=== PATIENT | female | born 1985 | race Caucasian/White ===

== ENCOUNTER → 2019-05-18 09:44 | Outpatient (BNVA) | payer MEDICAID, SELFPAY | PROVIDERS: Family Provider Nurse Practitioner; PCP Family Medicine; Visit Provider Counselor Professional | DX: F33.1 Major depressive disorder, recurrent, moderate (principal) | CPT/HCPCS: 90834; H0004 ==

== ENCOUNTER → 2019-05-25 09:50 | Outpatient (BNVA) | payer MEDICAID, SELFPAY | PROVIDERS: Family Provider Nurse Practitioner; PCP Family Medicine; Visit Provider Nurse Practitioner | DX: F33.1 Major depressive disorder, recurrent, moderate (principal) | CPT/HCPCS: 90832; 99213 ==

== ENCOUNTER → 2019-06-15 09:35 | Outpatient (BNVA) | payer MEDICAID, SELFPAY | PROVIDERS: Family Provider Nurse Practitioner; PCP Family Medicine; Visit Provider Counselor Professional | DX: F33.1 Major depressive disorder, recurrent, moderate (principal) | CPT/HCPCS: 90834 ==

== ENCOUNTER → 2019-06-23 10:17 | Outpatient (BNVA) | payer OTHER, SELFPAY | PROVIDERS: Family Provider Nurse Practitioner; PCP Family Medicine; Visit Provider Nurse Practitioner | DX: F32.9 Major depressive disorder, single episode, unspecified (principal) | CPT/HCPCS: 80061; 83036 ==

== ENCOUNTER → 2019-07-13 10:43 | Outpatient (BNVA) | payer MEDICAID, SELFPAY | PROVIDERS: Family Provider Nurse Practitioner; PCP Family Medicine; Visit Provider Counselor Professional | DX: F32.9 Major depressive disorder, single episode, unspecified (principal); F43.12 Post-traumatic stress disorder, chronic | CPT/HCPCS: 90834 ==

== ENCOUNTER → 2019-08-09 09:22 | Outpatient (BNVA) | payer MEDICAID, SELFPAY | PROVIDERS: Family Provider Nurse Practitioner; PCP Family Medicine; Visit Provider Counselor Professional | DX: F41.8 Other specified anxiety disorders (principal) | CPT/HCPCS: 90834 ==

== ENCOUNTER → 2019-08-16 07:54 | Outpatient (BNVA) | payer MEDICAID, SELFPAY | PROVIDERS: Family Provider Nurse Practitioner; PCP Family Medicine; Visit Provider Nurse Practitioner | DX: F43.10 Post-traumatic stress disorder, unspecified (principal); F33.1 Major depressive disorder, recurrent, moderate | CPT/HCPCS: 90832; 99214 ==

== ENCOUNTER → 2019-08-19 10:37 | Outpatient (BNVA) | payer MEDICAID, SELFPAY | PROVIDERS: Family Provider Nurse Practitioner; PCP Family Medicine; Visit Provider Obstetrics & Gynecology | DX: Z32.01 Encounter for pregnancy test, result positive (principal) | CPT/HCPCS: 81025 ==

== ENCOUNTER 2019-08-23 16:15 | Emergency (ER) | payer MEDICAID, SELFPAY ==
[2019-08-20 08:32] VITALS: BP 100/59; BMI 19.3
[2019-08-23 16:17] VITALS: BP 117/73; PULSE 75; RESP 18; TEMP 36.7; O2SAT 100; BMI 18.6
--- NOTE | 2019-08-23 17:18 | USR_ITS ---
NOTE: Report was unsigned for reason: Order was edited. Original Signature date and time was: 08/23/192015 PROCEDURE INFORMATION: Exam: US First Trimester, Transabdominal and US , Transvaginal Exam date and time: 08/23/2019 6:45 PM Age: 33 years old Clinical indication: Pain; Other: Left pelvic; Gestational age or lmp: See above; ; Additional info: L pelvic pain; TECHNIQUE: Imaging protocol: Real-time transabdominal obstetrical ultrasound of the maternal pelvis and a first trimester , less than 14 weeks 0 days, with image documentation. Transvaginal imaging was used for better evaluation of the fetus and adnexa. COMPARISON: US [facility] OB < 14 weeks 09/24/2013 9:39 AM FINDINGS: The uterus measures 9.3 x 4.8 x 5.2 cm. There is a single intrauterine gestational sac with a normal appearing yolk sac. The mean sac diameter is 1.4 cm, corresponding to an estimated gestational age of 6 weeks, 3 days. The estimated gestational age based on the last menstrual period (June 19, 2019) is 9 weeks, 2 days. No pole is identified at this time. There is a 2.1 x 0.9 x 0.7 cm hypoechoic area adjacent to the gestational sac, consistent with a small to moderate subchorionic hematoma. Both maternal ovaries are identified and demonstrate blood flow on Doppler interrogation. The right ovary measures 3.1 x 2.2 x 2.6 cm and the left ovary measures 3.4 x 1.8 x 2 cm. There is a small complex cystic lesion in the right ovary, suggestive of a corpus luteum. There is no adnexal mass. No free fluid is seen in the pelvis. MTDD US/US OB <= 14 weeks fetus [id number] IMPRESSION: 1. Single intrauterine gestational sac with a normal appearing yolk sac. No pole identified at this time. Serial quantitative beta-hCG levels and close interval ultrasound followup is recommended to ensure a normal intrauterine gestation and exclude anembryonic . 2. Small to moderate subchorionic hematoma.
--- NOTE | 2019-08-23 17:20 | W.ED.PREGNAN ---
HPI - General: Chief complaint: Abdominal Pain Stated complaint: lower left abd pain, preg Time Seen by Provider: 08/23/19 17:08 Source: patient Mode of arrival: ambulatory Limitations: no limitations History of Present Illness: HPI Narrative: Patient is a 33-year-old [id number] female here at an unknown gestation date for complaints of left pelvic pain. She states her has been confirmed via urine test at the [facility] however she is not sure how far along she may be. Patient states since around Friday she began having intermittent left lower pelvic pain that has slowly progressed. She contacted the [facility] today and was told to come to the emergency department for ectopic rule out. Patient states she is not having any vaginal bleeding. She does complain of some vaginal odor without any changes in discharge. MD Complaint: other (pelvic pain ) Onset (ago): day(s) Pain Consistency: intermittent Location: pelvis Severity: mild Quality: Cramping and Sharp Relieving factors: none Exacerbating factors: none Vaginal bleeding: none Date of Last Menstrual Period: 06/19/19 Patient : Yes Associated symptoms: Deny abdominal pain, dysuria, headache(s), malaise, nausea, syncope, vaginal bleeding, vaginal discharge or vomiting Review of Systems General: Reports: 10 or more systems reviewed and unremarkable except in HPI and below Const: Denies: fever, chills, body aches, change in appetite, change in weight, fatigue or malaise Card: Denies: chest pain, palpitations, irregular heart rhythm, edema, swelling of feet/ankles, lightheadedness, syncope, pre-syncope, shortness of breath on exertion or shortness of breath when lying down Resp: Denies: shortness of breath, productive cough, non-productive cough, coughing up blood or chest congestion GI: Denies: abdominal pain, nausea, vomiting or diarrhea : Reports: vaginal odor and pelvic pain; Denies: flank pain, difficulty urinating, painful urination, urinary frequency, urinary urgency, urinary hesitancy, blood in urine, genital lesion, genital itching, vaginal bleeding or vaginal discharge Musc: Denies: neck pain or back pain (chronic) Skin/Breast: Denies: rash Neuro: Denies: headache, numbness in extremities, weakness in extremities or changes in sensation PFS ED PFSH: Social History Smoking and tobacco status: current every day smoker cigarettes Quit status (tobacco): considering quitting Smoking risk assessment/counseling performed?: Yes Tobacco counseling given: counseling >3 minutes Current gender identity: Female Female Reproductive History: Date of last menstrual period: 06/19/19 Physical Exam Const: COMMON NORMALS: no apparent distress, average body habitus, oriented x3, no limitations, healthy appearing, alert and well nourished Resp: COMMON NORMALS: normal respiratory effort and clear to auscultation bilaterally AUSCULTATION: clear to auscultation bilaterally Cardio: COMMON NORMALS: regular rate and regular rhythm RATE: regular rate RHYTHM: regular rhythm GI: COMMON NORMALS: normal to inspection, nondistended, normoactive bowel sounds, soft to palpation, no hepatosplenomegaly and no masses PALPATION: Yes soft, Yes tender (L lower pelvis; no abdominal tenderness ) and Yes no hepatosplenomegaly : COMMON NORMALS: Yes no CVA tenderness BLADDER/KIDNEY EXAM: Yes no CVA tenderness SPECULUM EXAM - VAGINA: No vaginal bleeding and Yes vaginal discharge Vaginal discharge present: white SPECULUM EXAM - CERVIX: Yes cervical os closed, No tissue present in the cervical os, No cervical bleeding and Yes cervical lesion (two small lesions present at 7 oclock on cervix; reports +HPV) OB/EXTERNAL & SPECULUM: No vaginal bleeding Back/Pelvis: COMMON NORMALS: no CVA tenderness Extremity: COMMON NORMALS: normal to inspection Neuro: COMMON NORMALS: oriented x3 SENSORIUM/ORIENTATION: Yes alert Skin: COMMON NORMALS: no rashes or lesions noted GENERAL SKIN EXAM: no rashes or lesions noted Course Vital Signs: Vital signs: Vital Signs Temperature 98.1 F 08/23/19 16:17 Pulse Rate 91 08/23/19 18:41 Respiratory Rate 16 08/23/19 18:41 Blood Pressure 98/55 08/23/19 18:41 Pulse Oximetry 98 08/23/19 18:41 MDM - OB/Uterine Contractions MDM Narrative: Medical decision making narrative: Pt currently has appointment [facility] 14. Recommend she return to ED for any worsening pain, cramping, bleeding, or other concerns. Will go ahead and treat Lab Data: Labs: Lab Results 08/23/19 08/23/19 Range/Units 17:31 17:31 WBC 7.8 (4.0-10.0) 10^3/ uL RBC 4.39 (4.1-5.3) 10^6/u L Hgb 14.3 (11.5-15.3) g/dL Hct 42.8 (37.0-47.0) % MCV 97.5 (81-99) fL MCH 32.6 (28.0-34.0) pg MCHC 33.4 (30.0-36.0) g/dL RDW 12.6 (12.1-15.1) % Plt Count 235 (130-400) 10^3/c mm MPV 9.9 (7.4-10.4) fL Neut % (Auto) 64.9 % Lymph % (Auto) 24.4 % Barnes % (Auto) 7.6 % Eos % (Auto) 2.7 % Baso % (Auto) 0.3 % Neut # (Auto) 5.0 (1.8-7.7) 10^3/u L Lymph # (Auto) 1.9 (0.8-4.8) 10^3/u L Barnes # (Auto) 0.6 (0.2-0.9) 10^3/u L Eos # (Auto) 0.2 (0.0-0.8) 10^3/u L Baso # (Auto) 0.0 (0.0-0.1) 10^3/u L Nucleated RBC % (a uto) 0 % Nucleated RBCs # 0.0 /100WBC Sodium 137 (136-145) mmol/L Potassium 4.0 (3.5-5.1) mmol/L Chloride 101 (98-107) mmol/L Carbon Dioxide 24 (22-29) mmol/L Anion Gap 16.0 (5-19) BUN 12 (6-20) mg/dL Creatinine 0.7 (0.5-0.9) mg/dL GFR Calculation 97.0 (90-130) mL/min Glucose 88 (65-115) mg/dL Calculated Osmolal ity 280 L (285-295) mOsm/k g Calcium 9.4 (8.5-10.5) mg/dL Total Bilirubin 0.2 (0.15-1.2) mg/dL AST 15 (0-32) U/L ALT 12 (0-33) U/L Alkaline Phosphata se 78 (35-105) IU/L Total Protein 6.7 (6.6-8.7) g/dL Albumin 4.4 (3.5-5.2) g/dL Globulin 2.3 (1.3-4.6) g/dL Ser , [place] 34645.00 mIU/mL Imaging Data^: US OB: Radiologist's impression: [address] [address] Ultrasound Report Signed Patient: Shannon Acosta Unit #: [id number] : 1985 Age/Sex: 33 / F ADM Date: 08/23/19 Loc: ER Room/Bed: Attending Dr: Ordering Provider/Ordering MD: Ramona Bradley Date of Service: 08/23/19 Procedure(s): US OB <= 14 weeks fetus [id number] Accession Number(s): [id number] Report Number: [id number] PROCEDURE INFORMATION: Exam: US First Trimester, Transabdominal and US , Transvaginal Exam date and time: 08/23/2019 6:45 PM Age: 33 years old Clinical indication: Pain; Other: Left pelvic; Gestational age or lmp: See above; ; Additional info: L pelvic pain; TECHNIQUE: Imaging protocol: Real-time transabdominal obstetrical ultrasound of the maternal pelvis and a first trimester , less than 14 weeks 0 days, with image documentation. Transvaginal imaging was used for better evaluation of the fetus and adnexa. COMPARISON: [place] [facility] [place] 14 weeks 09/24/2013 9:39 AM FINDINGS: The uterus measures 9.3 x 4.8 x 5.2 cm. There is a single intrauterine gestational sac with a normal appearing yolk sac. The mean sac diameter is 1.4 cm, corresponding to an estimated gestational age of 6 weeks, 3 days. The estimated gestational age based on the last menstrual period (June 19, 2019) is 9 weeks, 2 days. No pole is identified at this time. There is a 2.1 x 0.9 x 0.7 cm hypoechoic area adjacent to the gestational sac, consistent with a small to moderate subchorionic hematoma. Both maternal ovaries are identified and demonstrate blood flow on Doppler interrogation. The right ovary measures 3.1 x 2.2 x 2.6 cm and the left ovary measures 3.4 x 1.8 x 2 cm. There is a small complex cystic lesion in the right ovary, suggestive of a corpus luteum. There is no adnexal mass. No free fluid is seen in the pelvis. US/US OB <= 14 weeks fetus [id number] IMPRESSION: 1. Single intrauterine gestational sac with a normal appearing yolk sac. No pole identified at this time. Serial quantitative beta-hCG levels and close interval ultrasound followup is recommended to ensure a normal intrauterine gestation and exclude anembryonic . 2. Small to moderate subchorionic hematoma. Dictated By: Jasen Ly MD Signed By: Jasen Ly MD Signed Date/Time: 08/23/192015 DD/ 14 Discharge Plan Discharge Patient Disposition: Home, Self-Care Clinical Impression: Bacterial vaginosis in Subchorionic hemorrhage in first trimester Qualifiers: Fetus number: single or unspecified fetus Qualified Code(s): O41.8X10 - Other specified disorders of amniotic fluid and membranes, first trimester, not applicable or unspecified Condition: Stable Prescriptions: No Action bupropion HCl [Wellbutrin XL] 150 mg tablet extended release 24 hr 150 mg PO QAM Qty: 30 RF: 1 buspirone 7.5 mg tablet 7.5 mg PO BID Qty: 60 RF: 1 cyclobenzaprine 10 mg tablet 10 mg PO TID PRN (Reason: muscle spasm) Qty: 30 RF: 0 albuterol sulfate [ProAir HFA] 90 mcg/actuation HFA aerosol inhaler 2 puff INHALATION Q6H PRN (Reason: shortness of breath) Qty: 8.5 RF: 0 melatonin 5 mg capsule 5 mg PO BEDTIME RF: 0 cholecalciferol (vitamin D3) 5,000 unit capsule 5,000 unit PO QDAY RF: 0 vitamin B complex [B Complex-Vitamin B12] Tablet 1 tab PO DAILY RF: 0 fluticasone propionate 50 mcg/actuation spray,suspension 1 spray INTRANASAL DAILY RF: 0 omeprazole 40 mg capsule,delayed release(DR/EC) 40 mg PO DAILY Qty: 30 RF: 2 rizatriptan [Maxalt-CONFIDENTIAL INVESTIGATOR] 10 mg tablet,disintegrating See Rx Instructions PO .COMPLEX Qty: 20 RF: 0 atenolol 25 mg tablet 25 mg PO BEDTIME RF: 0 Depakote ER 500 mg tablet extended release 24 hr 1,000 mg PO DAILY RF: 0 Zyrtec 10 mg capsule 10 mg PO DAILY PRN (Reason: allergy symptoms) RF: 0 Discharge Orders: Discharge Order (Routine); Ordered 08/23/19 Ordered By: Ramona Bradley Referrals: Betty Gracia FNP [Family Provider] - Uma León MD [Primary Care Provider] - Activity Restrictions/Additional Instructions: [facility]. He may return to the emergency department for severe bleeding, cramping/pain, or any other concerns you may have. Coding Level of Care Code ED Stone Finisher for Robin Fwd Exam Detailed
[2019-08-23 17:48] VITALS: BP 93/49; PULSE 106; RESP 18; O2SAT 98
[2019-08-23 17:49] LABS: Basophils % 0.3 %; Eosinophils # 0.2 10^3/uL (0.0-0.8); Eosinophils % 2.7 %; Hematocrit 42.8 % (37.0-47.0); Hemoglobin 14.3 g/dL (11.5-15.3); Lymphocytes # 1.9 10^3/uL (0.8-4.8); Lymphocytes % 24.4 %; Mean Corpuscular HGB Conc 33.4 g/dL (30.0-36.0); Mean Corpuscular Hemoglobin 32.6 pg (28.0-34.0); Mean Corpuscular Volume 97.5 fL (81-99); Mean Platelet Volume 9.9 fL (7.4-10.4); Monocytes # 0.6 10^3/uL (0.2-0.9); Monocytes % 7.6 %; Neutrophils % 64.9 %; Nucleated Red Blood Cells % 0 %; Platelet Count 235 10^3/cmm (130-400); Red Blood Count 4.39 10^6/uL (4.1-5.3); Red Cell Distribution Width 12.6 % (12.1-15.1); White Blood Count 7.8 10^3/uL (4.0-10.0)
[2019-08-23 18:15] LABS: Alanine Aminotransferase 12 U/L (0-33); Albumin Level 4.4 g/dL (3.5-5.2); Alkaline Phosphatase 78 IU/L (35-105); Aspartate Amino Transferase 15 U/L (0-32); Blood Urea Nitrogen 12 mg/dL (6-20); Calcium 9.4 mg/dL (8.5-10.5); Carbon Dioxide 24 mmol/L (22-29); Chloride 101 mmol/L (98-107); Globulin 2.3 g/dL (1.3-4.6); Glucose 88 mg/dL (65-115); Osmolality Calculated 280 mOsm/kg (285-295); Sodium 137 mmol/L (136-145); Total Bilirubin 0.2 mg/dL (0.15-1.2); Total Protein 6.7 g/dL (6.6-8.7)
[2019-08-23 18:24] VITALS: BP 112/59; PULSE 97; RESP 20; O2SAT 94
[2019-08-23 18:41] VITALS: BP 98/55; PULSE 91; RESP 16; O2SAT 98
[2019-08-23 20:35] VITALS: BP 94/59; PULSE 74; RESP 18; O2SAT 99
== END 2019-08-23 20:39 | disposition home or self-care (01) ==
PROVIDERS: Emergency Medicine; Emergency Provider Physician Assistant; Family Provider Nurse Practitioner; PCP Family Medicine
DX: O20.8 Other hemorrhage in early pregnancy (principal); Z3A.01 Less than 8 weeks gestation of pregnancy; O23.591 Infection of other part of genital tract in pregnancy, first trimester; O99.331 Smoking (tobacco) complicating pregnancy, first trimester; F17.210 Nicotine dependence, cigarettes, uncomplicated
CPT/HCPCS: 12345; 76801; 76817; 80053; 84702; 85025; 87210; 87491; 87591; 99282; 99283; A9270

== ENCOUNTER → 2019-09-03 07:57 | Outpatient (BNVA) | payer MEDICAID, SELFPAY | PROVIDERS: Family Provider Nurse Practitioner; PCP Family Medicine; Visit Provider Counselor Professional | DX: Z34.90 Encounter for supervision of normal pregnancy, unspecified, unspecified trimester (principal); F41.8 Other specified anxiety disorders; F32.0 Major depressive disorder, single episode, mild; F43.10 Post-traumatic stress disorder, unspecified | CPT/HCPCS: 90834 ==

== ENCOUNTER → 2019-09-28 11:29 | Outpatient (BNVA) | payer MEDICAID, SELFPAY ==
[2019-09-15 14:05] VITALS: BP 100/59; BMI 19.3
== END ==
PROVIDERS: Family Provider Nurse Practitioner; PCP Family Medicine; Visit Provider Obstetrics & Gynecology
DX: Z34.90 Encounter for supervision of normal pregnancy, unspecified, unspecified trimester (principal)
CPT/HCPCS: 80053; 80307; 84315; 86592; 86762; 86787; 86803; 86850; 86900; 87340; 87806

== ENCOUNTER → 2019-10-11 09:39 | Outpatient (BNVA) | payer MEDICAID, SELFPAY ==
[2019-10-08 15:20] VITALS: BP 100/59; BMI 19.3
== END ==
PROVIDERS: Family Provider Nurse Practitioner; PCP Family Medicine; Visit Provider Obstetrics & Gynecology
DX: Z12.4 Encounter for screening for malignant neoplasm of cervix (principal); O09.90 Supervision of high risk pregnancy, unspecified, unspecified trimester; O99.330 Smoking (tobacco) complicating pregnancy, unspecified trimester; J44.9 Chronic obstructive pulmonary disease, unspecified; G43.711 Chronic migraine without aura, intractable, with status migrainosus; F32.9 Major depressive disorder, single episode, unspecified; K21.9 Gastro-esophageal reflux disease without esophagitis
CPT/HCPCS: 84315; 88175

== ENCOUNTER → 2019-10-22 07:57 | Outpatient (BNVA) | payer MEDICAID, SELFPAY ==
[2019-10-20 08:35] VITALS: BP 100/59; BMI 19.3
== END ==
PROVIDERS: Family Provider Nurse Practitioner; PCP Family Medicine; Visit Provider Counselor Professional
DX: O99.330 Smoking (tobacco) complicating pregnancy, unspecified trimester (principal); F33.1 Major depressive disorder, recurrent, moderate
CPT/HCPCS: 90834

== ENCOUNTER → 2019-11-19 08:40 | Outpatient (BNVA) | payer MEDICAID, SELFPAY ==
[2019-11-02 15:17] VITALS: BP 100/59; BMI 19.3
== END ==
PROVIDERS: Family Provider Nurse Practitioner; PCP Family Medicine; Visit Provider Counselor Professional
DX: F33.2 Major depressive disorder, recurrent severe without psychotic features (principal)
CPT/HCPCS: 90834

== ENCOUNTER 2019-12-03 07:24 | Outpatient (CLI) | payer MEDICAID, SELFPAY ==
[2019-11-24 16:53] VITALS: BP 100/59; BMI 19.3
[2019-12-03] VITALS (7 sets, daily range): BP systolic 90–96; BP diastolic 46–54; PULSE 69–88; RESP 16; TEMP 37.1–37.2; BMI 19.5
[2019-12-03 08:10] LABS: Add Urine Microscopic? NO
[2019-12-03 08:19] LABS: Bilirubin Urine Neg (NEGATIVE); Blood Urine Neg (Negative); Glucose Urine UA Norm (Normal); Ketones Urine Negative (Negative); Leukocyte Esterase Urine Negative (Negative); Nitrate Urine Negative (Negative); Protein Urine Neg (Negative); Urine Appearance Clear (CLEAR); Urine Color Straw (Yellow); Urobilinogen Urine Norm (Negative)
[2019-12-03 08:49] LABS: Basophils % 0.2 %; Eosinophils # 0.1 10^3/uL (0.0-0.8); Eosinophils % 1.3 %; Hematocrit 35.1 % (37.0-47.0); Hemoglobin 11.8 g/dL (11.5-15.3); Lymphocytes # 1.4 10^3/uL (0.8-4.8); Lymphocytes % 14.8 %; Mean Corpuscular HGB Conc 33.6 g/dL (30.0-36.0); Mean Corpuscular Hemoglobin 32.1 pg (28.0-34.0); Mean Corpuscular Volume 95.4 fL (81-99); Mean Platelet Volume 10.2 fL (7.4-10.4); Monocytes # 0.7 10^3/uL (0.2-0.9); Monocytes % 7.5 %; Neutrophils # 6.99 10^3/uL (1.8-7.7); Neutrophils % 75.8 %; Nucleated Red Blood Cells % 0 %; Platelet Count 185 10^3/cmm (130-400); Red Blood Count 3.68 10^6/uL (4.1-5.3); Red Cell Distribution Width 13.4 % (12.1-15.1); White Blood Count 9.2 10^3/uL (4.0-10.0)
[2019-12-03] MEDS: acetaminophen 500 mg Tablet 1000 MG PO (09:03)
[2019-12-03 09:12] LABS: Urine Appearance Clear (CLEAR); Urine Color Yellow (Yellow); pH Urine 7 (5-7)
[2019-12-03 09:13] LABS: Add Urine Culture? No; Bacteria Urine TRACE; Bilirubin Urine Neg (NEGATIVE); Blood Urine Neg (Negative); Glucose Urine UA Norm (Normal); Ketones Urine Negative (Negative); Leukocyte Esterase Urine Negative (Negative); Nitrate Urine Negative (Negative); Protein Urine Neg (Negative); Squamous Epithelial Cell Urine RARE (0-5); Urobilinogen Urine Norm (Negative)
[2019-12-03 09:19] LABS: Alanine Aminotransferase < 5 U/L (0-33); Albumin Level 3.2 g/dL (3.5-5.2); Alkaline Phosphatase 62 IU/L (35-105); Anion Gap 11.7 (5-19); Aspartate Amino Transferase 10 U/L (0-32); Blood Urea Nitrogen 5 mg/dL (6-20); Calcium 7.9 mg/dL (8.5-10.5); Carbon Dioxide 22 mmol/L (22-29); Chloride 107 mmol/L (98-107); Globulin 2.4 g/dL (1.3-4.6); Glucose 84 mg/dL (65-115); Osmolality Calculated 279 mOsm/kg (285-295); Potassium 3.7 mmol/L (3.5-5.1); Sodium 137 mmol/L (136-145); Total Bilirubin 0.2 mg/dL (0.15-1.2); Total Protein 5.6 g/dL (6.6-8.7)
== END 2019-12-03 09:44 | disposition home or self-care (01) ==
LOC: OPOB 07:29 → OBGYN 09:35
PROVIDERS: Family Provider Nurse Practitioner; PCP Family Medicine; Visit Provider Obstetrics & Gynecology
DX: O26.899 Other specified pregnancy related conditions, unspecified trimester (principal); Z3A.00 Weeks of gestation of pregnancy not specified; R10.9 Unspecified abdominal pain; M54.5 Low back pain
CPT/HCPCS: 36415; 80053; 81001; 81003; 85025; 99211

== ENCOUNTER → 2020-01-05 10:29 | Outpatient (BNVA) | payer MEDICAID, SELFPAY ==
[2019-11-24 16:53] VITALS: BP 100/59; BMI 19.3
== END ==
PROVIDERS: Family Provider Nurse Practitioner; PCP Family Medicine; Visit Provider Counselor Professional
DX: O99.330 Smoking (tobacco) complicating pregnancy, unspecified trimester (principal); F33.1 Major depressive disorder, recurrent, moderate
CPT/HCPCS: 90834; 84315

== ENCOUNTER → 2020-01-18 16:39 | Outpatient (BNVA) | payer MEDICAID, SELFPAY ==
[2019-11-24 16:53] VITALS: BP 100/59; BMI 19.3
== END ==
PROVIDERS: Family Provider Nurse Practitioner; PCP Family Medicine; Visit Provider Nurse Practitioner Family
DX: R05 Cough (principal); Z11.59 Encounter for screening for other viral diseases; Z20.828 Contact with and (suspected) exposure to other viral communicable diseases
CPT/HCPCS: 87635

== ENCOUNTER → 2020-01-24 10:15 | Outpatient (BNVA) | payer MEDICAID, SELFPAY ==
[2020-01-19 13:52] VITALS: BP 100/59; BMI 19.3
== END ==
PROVIDERS: Family Provider Nurse Practitioner; PCP Family Medicine; Visit Provider Specialist
DX: G43.711 Chronic migraine without aura, intractable, with status migrainosus (principal); F17.210 Nicotine dependence, cigarettes, uncomplicated
CPT/HCPCS: 99214

== ENCOUNTER → 2020-01-31 08:11 | Outpatient (BNVA) | payer MEDICAID, SELFPAY ==
[2020-01-19 13:52] VITALS: BP 100/59; BMI 19.3
== END ==
PROVIDERS: Family Provider Nurse Practitioner; PCP Family Medicine; Visit Provider Obstetrics & Gynecology
DX: O09.90 Supervision of high risk pregnancy, unspecified, unspecified trimester (principal); O44.00 Complete placenta previa NOS or without hemorrhage, unspecified trimester; O99.332 Smoking (tobacco) complicating pregnancy, second trimester; G43.711 Chronic migraine without aura, intractable, with status migrainosus; J44.9 Chronic obstructive pulmonary disease, unspecified; K21.9 Gastro-esophageal reflux disease without esophagitis; F32.9 Major depressive disorder, single episode, unspecified
CPT/HCPCS: 82950; 84315; 85025

== ENCOUNTER → 2020-02-03 08:37 | Outpatient (BNVA) | payer MEDICAID, SELFPAY ==
[2020-02-01 11:37] VITALS: BP 100/59; BMI 19.3
== END ==
PROVIDERS: Family Provider Nurse Practitioner; PCP Family Medicine; Visit Provider Counselor Professional
DX: F33.1 Major depressive disorder, recurrent, moderate (principal)
CPT/HCPCS: 90834

== ENCOUNTER → 2020-02-16 10:33 | Outpatient (BNVA) | payer MEDICAID, SELFPAY ==
[2020-02-01 11:37] VITALS: BP 100/59; BMI 19.3
== END ==
PROVIDERS: Family Provider Nurse Practitioner; PCP Family Medicine; Visit Provider Obstetrics & Gynecology
DX: O42.90 Premature rupture of membranes, unspecified as to length of time between rupture and onset of labor, unspecified weeks of gestation; O44.00 Complete placenta previa NOS or without hemorrhage, unspecified trimester; Z30.2 Encounter for sterilization; O99.332 Smoking (tobacco) complicating pregnancy, second trimester; J44.9 Chronic obstructive pulmonary disease, unspecified; G43.711 Chronic migraine without aura, intractable, with status migrainosus; F32.9 Major depressive disorder, single episode, unspecified; K21.9 Gastro-esophageal reflux disease without esophagitis; O09.90 Supervision of high risk pregnancy, unspecified, unspecified trimester
CPT/HCPCS: 83986; 84315

== ENCOUNTER → 2020-03-02 08:27 | Outpatient (BNVA) | payer MEDICAID, SELFPAY ==
[2020-02-01 11:37] VITALS: BP 100/59; BMI 19.3
== END ==
PROVIDERS: Family Provider Nurse Practitioner; PCP Family Medicine; Visit Provider Counselor Professional
DX: F32.9 Major depressive disorder, single episode, unspecified (principal)
CPT/HCPCS: 90834

== ENCOUNTER 2020-03-23 12:25 | Emergency (ER) | payer MEDICAID, SELFPAY ==
[2020-02-01 11:37] VITALS: BP 100/59; BMI 19.3
[2020-03-23 12:27] VITALS: BP 100/62; PULSE 102; RESP 16; TEMP 37; O2SAT 96; BMI 21.6
--- NOTE | 2020-03-23 12:43 | XR_ITS ---
WS: [id number] PORTABLE CHEST HISTORY: cough COMPARISON: 04/30/2018 Lungs are clear and well expanded. No pleural effusion or pneumothorax. Cardiac size: Normal. Mediastinum/Aorta: Normal mediastinum. No osseous abnormality seen. XR/XR chest 1V portable [id number] IMPRESSION: Unremarkable portable chest.
--- NOTE | 2020-03-23 12:54 | W.ED.GENADLT ---
HPI - General Adult General: Chief complaint: General Medical Stated complaint: NOT FEELING WELL/ POSSIBLE COVID Time Seen by Provider: 03/23/20 12:40 Source: patient and EMS Mode of arrival: EMS Limitations: no limitations History of Present Illness: HPI narrative: 34-year-old female who is 36 weeks states she has been having generalized body aches, sore throat nonproductive cough over the last 2 to 3 days. States feels like she has the flu or flulike illness. Denies any abdominal pain or vaginal bleeding. Patient denies any shortness of breath or fevers. Associated symptoms: Deny chest pain, headache(s), nausea, rash or vomiting Review of Systems Const: Reports: chills and body aches Eyes: Denies: blurry vision or eye discomfort ENMT: Reports: throat pain Card: Denies: chest pain Resp: Reports: non-productive cough GI: Denies: abdominal pain, nausea, vomiting or diarrhea : Denies: dysuria Musc: Denies: neck pain or back pain Skin/Breast: Denies: rash Neuro: Denies: headache(s) Psych: Denies: depression Dwain/Lymph: Denies: easy bruising All/Imm: Denies: urticaria PFSH ED PFSH: Medical History (Updated 03/23/20 @ 13:58 by Toyin Neri MD) Chronic major depressive disorder Has depression and PTSD since a teenager. She does see a counselor Darlene Vazquez at [facility], [place] and was on Wellbutrin and BuSpar prior to the which she stopped when she became under the direction of her counselor. She currently denies suicidal/homicidal ideation. COPD (chronic obstructive pulmonary disease) /Asthma-----> diagnosed as a child and has never been hospitalized or intubated for asthma. Does have an albuterol inhaler which she uses once or twice a month. Think she has COPD as well. Fibromyalgia Diagnosed in 2014 GERD (gastroesophageal reflux disease) Symptoms controlled with omeprazole Intractable chronic migraine without aura and with status migrainosus Used to take Imitrex prior to the and was being managed by Dr. Maldonado and has already been trying Botox injections however stopped once she found out she was . No pertinent past medical history Denies diabetes, hypertension, seizures, DVT/PE. PDM: Dr. León PTSD (post-traumatic stress disorder) Surgical History History of laparoscopy (02/03/19) diagnostic-- Albino for ovarian cyst and pelvic pain--- normal pelvic anatomy noted and ovarian cyst had resolved. No specimens obtained. Operative report has been scanned. Family History Grandmother Diabetes maternal Father Aneurysm of the brain, at age 32 Son Seizure disorder Family/Other Seizure disorder paternal uncle Denies family history of Colon cancer Ovarian cancer Heart disease Hyperlipidemia Breast cancer Anesthesia complication Bleeding disorder Hypertension Uterine cancer Thyroid condition Stroke Social History Smoking and tobacco status: current every day smoker cigarettes Packs smoked per day: 0.5 [ Other cigarette details: Most smoked 1 PPD. Started smoking age 15 ] Alcohol intake: never Female Reproductive History: Date of last menstrual period: 07/17/19 Physical Exam Const: COMMON NORMALS: no acute distress, patient oriented x3 and healthy appearing HENMT: COMMON NORMALS: normocephalic and atraumatic HEAD & SCALP: normocephalic and atraumatic Eye: COMMON NORMALS: Equal, round and reactive pupils present and EOMs intact bilaterally PUPIL: Yes Equal, round and reactive pupils present Neck/C-Spine: COMMON NORMALS: full ROM and supple Chest: COMMONS NORMALS: normal inspection of the chest and normal palpation of entire chest wall Resp: COMMON NORMALS: normal respiratory effort, No retractions, No use of accessory muscles and clear to auscultation bilaterally AUSCULTATION: clear to auscultation bilaterally Cardio: COMMON NORMALS: regular rate, regular rhythm and No murmurs present (Cardio) RATE: regular rate RHYTHM: regular rhythm GI: COMMON NORMALS: Soft to palpation, non-tender and no masses PALPATION: Yes Soft to palpation OTHER: Gravid uterus Extremity: COMMON NORMALS: normal to inspection and full ROM Neuro: COMMON NORMALS: patient oriented x3, moves all extremities and no focal motor deficits Psych: COMMON NORMALS: mental status grossly normal, Normal thought process present and cooperative THOUGHT PROCESS: Normal thought process present Skin: COMMON NORMALS: no rashes or lesions noted and no wounds GENERAL SKIN EXAM: no rashes or lesions noted Course Vital Signs: Vital signs: Vital Signs Temperature 98.6 F 03/23/20 12:27 Pulse Rate 102 H 03/23/20 12:27 Respiratory Rate 16 03/23/20 12:27 Blood Pressure 100/62 03/23/20 12:27 Pulse Oximetry 96 03/23/20 12:27 MDM - General Adult MDM Narrative: Medical decision making narrative: Shannon presents here symptoms consistent with an upper respiratory infection. Patient's Covid is pending and she is to quarantine until results. Her strep and flu are negative. Her chest x-ray here is clear and she is well-appearing here with no signs of pneumonia or sepsis. She is to follow-up with her OB and return if worsening. Lab Data: Labs: Lab Results 03/23/20 03/23/20 Range/Units 12:54 12:55 Influenza Type A A g Negative (Negative) Influenza Type B A g Negative (Negative) Group A Strep Rapi d Negative (Negative) Imaging Data^: CXR: Attestation: I personally reviewed and interpreted this imaging study as follows: Radiologist's impression: [address] [address] XRay Report Signed Patient: Shannon Acosta Unit #: [id number] : 1985 Age/Sex: 34 / F ADM Date: 03/23/20 Loc: ER Room/Bed: Attending Dr: Ordering Provider/Ordering MD: Toyin Neri MD Date of Service: 03/23/20 Procedure(s): XR chest 1V portable [id number] Accession Number(s): [id number] Report Number: [id number] WS: [id number] PORTABLE CHEST HISTORY: cough COMPARISON: 04/30/2018 Lungs are clear and well expanded. No pleural effusion or pneumothorax. Cardiac size: Normal. Mediastinum/Aorta: Normal mediastinum. No osseous abnormality seen. XR/XR chest 1V portable [id number] IMPRESSION: Unremarkable portable chest. Discharge Plan Discharge Patient Disposition: Home Clinical Impression: Upper respiratory infection Condition: Stable Prescriptions: No Action albuterol sulfate [ProAir HFA] 90 mcg/actuation HFA aerosol inhaler 2 puff INHALATION Q6H PRN (Reason: shortness of breath) Qty: 8.5 RF: 0 omeprazole 20 mg capsule,delayed release(DR/EC) 20 mg PO DAILY PRNRF: 0 Zyrtec 10 mg capsule 10 mg PO DAILY PRN (Reason: Allergy Symptoms) Qty: 90 RF: 2 Discharge Orders: Discharge Order (Routine); Ordered 03/23/20 Ordered By: Toyin Neri Referrals: Uma León MD [Primary Care Provider] - 1-3 days Discharge Diet: Advance as tolerated Discharge Activity: Resume usual activity Patient Instructions: Upper Respiratory Infection (ED) Coding Level of Care Code ED Linseed Oil Temperer for Chg Fwd Exam Comprehensive
[2020-03-23] MEDS: acetaminophen 325 mg Tablet 650 MG PO (13:12)
[2020-03-23 13:44] LABS: Influenza A by IFA Negative (Negative); Influenza B by IFA Negative (Negative)
[2020-03-23 13:44] LABS: Rapid Strep A Test Negative (Negative)
[2020-03-23 14:15] VITALS: BP 105/46; O2SAT 97
[2020-03-23 14:27] VITALS: BP 105/46; RESP 18; O2SAT 97
[2020-03-26 02:17] LABS: Quest SARS-CoV-2 RNA NOT DETECTED (NOT DETECTED)
== END 2020-03-23 14:27 | disposition home or self-care (01) ==
PROVIDERS: Emergency Provider Emergency Medicine; PCP Family Medicine
DX: O99.513 Diseases of the respiratory system complicating pregnancy, third trimester (principal); J06.9 Acute upper respiratory infection, unspecified; Z3A.36 36 weeks gestation of pregnancy; O99.333 Smoking (tobacco) complicating pregnancy, third trimester; F17.210 Nicotine dependence, cigarettes, uncomplicated
CPT/HCPCS: 12345; 71045; 87070; 87635; 87804; 87880; 99281; 99283

== ENCOUNTER 2020-03-29 08:09 | Outpatient (CLI) | payer MEDICAID, SELFPAY ==
[2020-02-01 11:37] VITALS: BP 100/59; BMI 19.3
--- NOTE | 2020-03-29 08:18 | US_ITS ---
WS: [id number] [place] [id number] REASON FOR EXAM: GROWTH. Limited examination to evaluate growth. FINDINGS: Biparietal diameter 8.65 cm. EGA 34 weeks 6 days Head circumference 32.31 cm EGA 36 weeks 4 days Abdominal circumference 31.41 cm EGA 35 weeks 2 days Femur length 7.04 cm EGA 36 weeks 1 day EGA by combined measurements 36 weeks 2 days Estimated weight 2725 g. / [place] [id number] IMPRESSION: On 03/22/2020 EGA by combined measurements was 35 weeks 4 days. On 03/29/2020 EGA by combined measurements was 36 weeks 2 days.
== END 2020-03-29 08:10 | disposition home or self-care (01) ==
LOC: RAD 08:12
PROVIDERS: PCP Family Medicine; Visit Provider Obstetrics & Gynecology
DX: Z36.89 Encounter for other specified antenatal screening (principal)
CPT/HCPCS: 76816; 84315; 87081

== ENCOUNTER → 2020-04-06 08:11 | Outpatient (BNVA) | payer MEDICAID, SELFPAY ==
[2020-02-01 11:37] VITALS: BP 100/59; BMI 19.3
== END ==
PROVIDERS: Family Provider Nurse Practitioner; PCP Family Medicine; Visit Provider Counselor Professional
DX: F32.9 Major depressive disorder, single episode, unspecified (principal)
CPT/HCPCS: 90834

== ENCOUNTER → 2020-04-12 11:05 | Outpatient (BNVA) | payer MEDICAID, SELFPAY ==
[2020-02-01 11:37] VITALS: BP 100/59; BMI 19.3
== END ==
PROVIDERS: Family Provider Nurse Practitioner; PCP Family Medicine; Visit Provider Nurse Practitioner Women's Health
DX: O09.90 Supervision of high risk pregnancy, unspecified, unspecified trimester (principal); J44.9 Chronic obstructive pulmonary disease, unspecified; O99.332 Smoking (tobacco) complicating pregnancy, second trimester; F32.9 Major depressive disorder, single episode, unspecified; K21.9 Gastro-esophageal reflux disease without esophagitis; O99.820 Streptococcus B carrier state complicating pregnancy; X58.XXXA Exposure to other specified factors, initial encounter
CPT/HCPCS: 84315; 87635

== ENCOUNTER 2020-04-17 19:01 | Inpatient (IN) | payer MEDICAID, SELFPAY ==
[2020-02-01 11:37] VITALS: BP 100/59; BMI 19.3
[2020-04-17] VITALS (11 sets, daily range): BP systolic 0–121; BP diastolic 0–69; PULSE 71–85; BMI 22.4
[2020-04-17] MEDS: dextrose 5%-lactated ringers 1,000 ML 125 ML IV (20:11)
[2020-04-17] MEDS: ampicillin 2,000 MG in sodium chloride 0.9% (plus) 50 ML 100 MG IV (20:11)
[2020-04-17 20:24] LABS: Basophils % 0.2 %; Eosinophils # 0.1 10^3/uL (0.0-0.8); Eosinophils % 0.9 %; Hematocrit 32.4 % (37.0-47.0); Hemoglobin 10.6 g/dL (11.5-15.3); Lymphocytes # 1.5 10^3/uL (0.8-4.8); Lymphocytes % 16.5 %; Mean Corpuscular HGB Conc 32.7 g/dL (30.0-36.0); Mean Corpuscular Hemoglobin 31.8 pg (28.0-34.0); Mean Corpuscular Volume 97.3 fL (81-99); Mean Platelet Volume 9.7 fL (7.4-10.4); Monocytes # 0.7 10^3/uL (0.2-0.9); Monocytes % 8.3 %; Neutrophils # 6.42 10^3/uL (1.8-7.7); Neutrophils % 73.2 %; Nucleated Red Blood Cells % 0 %; Platelet Count 258 10^3/cmm (130-400); Red Blood Count 3.33 10^6/uL (4.1-5.3); Red Cell Distribution Width 14.6 % (12.1-15.1); White Blood Count 8.8 10^3/uL (4.0-10.0)
[2020-04-17] MEDS: oxytocin 30 UNIT/500 ML BAG IV (21:47)
[2020-04-18] VITALS (55 sets, daily range): BP systolic 0–120; BP diastolic 0–79; PULSE 64–101; RESP 16–19; TEMP 36.6–37.1; O2SAT 81–100
[2020-04-18] MEDS: ampicillin 1,000 MG in sodium chloride 0.9% (plus) 50 ML 100 MG IV ×2 (01:00→04:04)
[2020-04-18] MEDS: dextrose 5%-lactated ringers 1,000 ML 125 ML IV (02:57)
[2020-04-18] MEDS: fentaNYL 50 mcg/mL INJ 2mL IV (02:57)
[2020-04-18] MEDS: lactated ringers 1,000 ML 999 ML IV (04:04)
--- NOTE | 2020-04-18 05:56 | PM.DELIVERY ---
Delivery Note: Date of delivery: April 18, 2020 - PRE-DELIVERY DIAGNOSIS: 34-year-old 7 para 3-0-3-3 at 39 weeks and 2 days Elective induction for social reasons Tobacco use during GBS positive COPD/asthma Depression not on medication Multiparity desiring sterilization POST-DELIVERY DIAGNOSIS: Vaginal delivery on 04/18/2020 PROCEDURE: Vaginal delivery on 04/18/2020 ANESTHESIA: None DELIVERING PHYSICIAN: Christina Carty FACOG PRE-DELIVERY COURSE: Ms. Acosta is a 34-year-old 7 para 3-0-3-3 at 39 weeks and 2 days who presented to labor and delivery on 04/17/2020 at 7 PM for scheduled induction of labor for social reasons. When she reached labor and delivery she had no complaints other than irregular contractions and stated that everything was going well. tracing was category 1 and cervix was 2 cm 50% and -4 station and ballotable. Decision was made to start with Cytotec however by the time patient was admitted and IV fluids had been started she was noted to be bryan every 2 to 5 minutes and was bryan too frequently for Cytotec and as a result induction was started with Pitocin which was titrated to a maximum of 6 mIU and with this she started to grow a little bit uncomfortable but made very minimal cervical change. At about 2 AM on 04/18/2020 she was 2 to 3 cm 50% and -3 station, cephalic with irregular contractions every 3 to 7 minutes. Pitocin was titrated up to a maximum of 10 mIU and with this she started to have regular contractions. She remained 3 cm until 4:50 AM when she had spontaneous rupture of membranes with clear fluid and was noted to be 5 cm 80% and -1 station, cephalic. DELIVERY NOTE: I received a call at 4:50 AM stating that she had spontaneous rupture of membranes and was driving to the hospital when I received a call at 5:05 AM stating that the baby had been born. Per the nurse baby delivered without any difficulty onto the bed through the nuchal cord x3 and cried shortly afterwards. She made rapid cervical change after this and delivered the baby at 5:02 AM---12 minutes later.I reached the room at 5:08 AM and the baby was on the warmer and was crying spontaneously and appeared pink and vigorous. She was set up in lithotomy position and the placenta delivered spontaneously intact with membranes and was discarded. The fundus was noted to be firm and well contracted. However the lower uterine segment was bulky and was bleeding and clots were removed from it. 600 mcg of Cytotec was placed per rectum and lower uterine segment was massaged and with this tone improved and bleeding decreased. The vagina and cervix were inspected and no cervical or sulcal lacerations were noted. The perineum was noted to be intact. There was a periurethral abrasion that was hemostatic and not repaired. Baby girl , Sam born at 5:02 AM on 04/18/2020 with 9/10, weighing 5 pounds 9 ounces, 2515 g, 20-1/2 inches long. Placenta was delivered spontaneously intact with membranes at 5:17 AM. Cotyledons were intact , centrally inserted umbilical cord with 3 vessels noted. Estimated blood loss 300 mL. Complications-none, both baby and mother were left to recovery in a stable condition. -We discussed that a tubal ligation is a permanent procedure and that should she desire to have a reversal procedure the success rate of a reversal procedure is low. I also discussed the failure rate of tubal ligation is less than 1% and that should she find out she is after having the procedure, she needs to see an CLOTH PACKER immediately as her risk of having an ectopic is higher. She also understands that the regret rate is higher when people to choose permanent sterilization at a younger age. We also discussed the other forms of reversible contraceptions including an IUD, patch, OCP, nexplanon, Depo-Provera. She understands that she has other options but she wants to have her tubes tied. We discussed the surgical procedure and the risks and benefits of surgery and a routine postoperative cours. She states she feels a little tired now and is considering interval sterilization however she has not decided as yet. She will let the nurse know in the next 1 hour what she decides to do-with a tubal or interval sterilization and based on this we can plan for surgery. 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 6 oz., 40 WG, Anesthesia none, Vaginal delivery, Dr. Camp at [facility] 2--->[11/18/2005]Female, (Kristina)5 lbs. 5-1/2 oz., 40 WG, Anesthesia none, Vaginal delivery, Dr. Camp at [facility]. Small for gestational age however she was told everything was normal. 3--->2011; blighted ovum; spontaneously passed 4--->09/28/2013; SAB, no D&C 5--->[06/30/14]Male,(West) 6 lbs 1.5 oz, 39 WG, No anesthesia, Vaginal delivery, Dr. Hurtado at [facility] 6--->10/2014; SAB first trimester, no D&C 7---> 04/18/2020---full-term vaginal delivery of a baby girl (Vida Menchaca) at 39 weeks and 2 days, induction with Pitocin, no anesthesia, [place] [facility] She weighed 5 pounds 9 ounces.
[2020-04-18] MEDS: HYDROcodone-acetaminophen 5-325 mg Tablet PO ×2 (06:45→23:44)
[2020-04-18] MEDS: ibuprofen 800 mg tablet PO ×2 (08:39→20:04)
[2020-04-18] MEDS: docusate sodium 100 mg Capsule PO (08:39)
[2020-04-18] MEDS: prenatal vitamin Capsule 1 CAP PO (08:39)
[2020-04-18 18:25] LABS: Hematocrit 29.5 % (37.0-47.0); Hemoglobin 9.7 g/dL (11.5-15.3); Mean Corpuscular HGB Conc 32.9 g/dL (30.0-36.0); Mean Corpuscular Hemoglobin 31.8 pg (28.0-34.0); Mean Corpuscular Volume 96.7 fL (81-99); Mean Platelet Volume 10.2 fL (7.4-10.4); Platelet Count 213 10^3/cmm (130-400); Red Blood Count 3.05 10^6/uL (4.1-5.3); Red Cell Distribution Width 14.5 % (12.1-15.1); White Blood Count 10.3 10^3/uL (4.0-10.0)
[2020-04-19 04:39] VITALS: BP 100/65; PULSE 93; TEMP 36.7; O2SAT 99
[2020-04-19] MEDS: docusate sodium 100 mg Capsule PO (08:24)
[2020-04-19] MEDS: prenatal vitamin Capsule 1 CAP PO (08:24)
[2020-04-19] MEDS: ibuprofen 800 mg tablet PO (08:25)
--- NOTE | 2020-04-19 08:30 | P.DS_ITS ---
Discharge Providers [employer] Date of Admission: 04/17/20 19:50 Date of Discharge: 04/19/20 Attending Provider at Admission: Christina Lane MD Attending Provider at Discharge: Christina Lane MD Primary Care Provider: Uma León MD Reason for Visit Reason for Visit: scheduled induction Hospital Course Hospital Course PRE-DELIVERY DIAGNOSIS: 34-year-old 7 para 3-0-3-3 at 39 weeks and 2 days Elective induction for social reasons Tobacco use during GBS positive COPD/asthma Depression not on medication Multiparity desiring sterilization POST-DELIVERY DIAGNOSIS: Vaginal delivery on 04/18/2020 PROCEDURE: Vaginal delivery on 04/18/2020 ANESTHESIA: None DELIVERING PHYSICIAN: Christina Carty FACOG PRE-DELIVERY COURSE: Ms. Acosta is a 34-year-old 7 para 3-0-3-3 at 39 weeks and 2 days who presented to labor and delivery on 04/17/2020 at 7 PM for scheduled induction of labor for social reasons. When she reached labor and delivery she had no complaints other than irregular contractions and stated that everything was going well. tracing was category 1 and cervix was 2 cm 50% and -4 station and ballotable. Decision was made to start with Cytotec however by the time patient was admitted and IV fluids had been started she was noted to be bryan every 2 to 5 minutes and was bryan too frequently for Cytotec and as a result induction was started with Pitocin which was titrated to a maximum of 6 mIU and with this she started to grow a little bit uncomfortable but made very minimal cervical change. At about 2 AM on 04/18/2020 she was 2 to 3 cm 50% and -3 station, cephalic with irregular contractions every 3 to 7 minutes. Pitocin was titrated up to a maximum of 10 mIU and with this she started to have regular contractions. She remained 3 cm until 4:50 AM when she had spontaneous rupture of membranes with clear fluid and was noted to be 5 cm 80% and -1 station, cephalic. DELIVERY NOTE: I received a call at 4:50 AM stating that she had spontaneous rupture of membranes and was driving to the hospital when I received a call at 5:05 AM stating that the baby had been born. Per the nurse baby delivered without any difficulty onto the bed through the nuchal cord x3 and cried shortly afterwards. She made rapid cervical change after this and delivered the baby at 5:02 AM---12 minutes later.I reached the room at 5:08 AM and the baby was on the warmer and was crying spontaneously and appeared pink and vigorous. She was set up in lithotomy position and the placenta delivered spontaneously intact with membranes and was discarded. The fundus was noted to be firm and well contracted. However the lower uterine segment was bulky and was bleeding and clots were removed from it. 600 mcg of Cytotec was placed per rectum and lower uterine segment was massaged and with this tone improved and bleeding decreased. The vagina and cervix were inspected and no cervical or sulcal lacerations were noted. The perineum was noted to be intact. There was a periurethral abrasion that was hemostatic and not repaired. Baby girl , Sam born at 5:02 AM on 04/18/2020 with 9/10, weighing 5 pounds 9 ounces, 2515 g, 20-1/2 inches long. Placenta was delivered spontaneously intact with membranes at 5:17 AM. Cotyledons were intact , centrally inserted umbilical cord with 3 vessels noted. Estimated blood loss 300 mL. Complications-none, both baby and mother were left to recovery in a stable condition. HOSPITAL COURSE: She underwent an uncomplicated vaginal delivery on 04/18/2020. She did well on day 0 and was ambulating well, tolerating regular diet, voiding freely, passing flatus. She was formula feeding without difficulty and bonding well with her daughter. Pain was well-controlled with by mouth pain medication. She denied nausea, vomiting, fever, chills, shortness of breath, leg pain. She had moderate vaginal bleeding. On day # 1 she continued to do well with stable vital signs and stable hemoglobin at 9.7. She was discharged home on day 1 in a stable condition, as she desired early discharge. Warning signs for endometritis, mastitis, DVT/PE were reviewed with her. Post delivery activity restrictions were also reviewed with her at all her questions were answered to her satisfaction. Plans on using abstinence for contraception until she has sterilization done EXAM AT DISCHARGE: Gen.: No acute distress Heart: S1-S2 heard, regular rate and rhythm Lungs: Clear to auscultation bilaterally Abdomen: Soft, fundus firm below umbilicus, tenderness around incision. Incision: Clean dry and intact with Steri-Strips. Legs: No calf tenderness, no pedal edema. CONDITION AT DISCHARGE: Stable Information Peripartum Data: Delivery Method: Vaginal Discharge Data Data Completed and Pending: Labs from last 24 hours 04/18/20 17:40 WBC 10.3 H RBC 3.05 L Hgb 9.7 L Hct 29.5 L MCV 96.7 MCH 31.8 MCHC 32.9 RDW 14.5 Plt Count 213 MPV 10.2 Vitals: Last Vital Signs Temp 98.0 F 04/19/20 04:39 Pulse 93 04/19/20 04:39 Resp 18 04/18/20 19:30 BP 100/65 04/19/20 04:39 Pulse Ox 99 04/19/20 04:39 Discharge Plan Discharge Patient Disposition: Home Condition: Stable Prescriptions: New ibuprofen 800 mg tablet 800 mg PO Q8H Qty: 30 RF: 0 docusate sodium 100 mg Capsule 100 mg PO BID PRN (Reason: constipation) Qty: 30 RF: 0 Continued albuterol sulfate [ProAir HFA] 90 mcg/actuation HFA aerosol inhaler 2 puff INHALATION Q6H PRN (Reason: shortness of breath) Qty: 8.5 RF: 0 omeprazole 20 mg capsule,delayed release(DR/EC) 20 mg PO DAILY PRN (Reason: Indigestion) RF: 0 Zyrtec 10 mg capsule 10 mg PO DAILY PRN (Reason: Allergy Symptoms) Qty: 90 RF: 2 Discontinued promethazine 25 mg tablet 25 mg PO TID PRN (Reason: Itching) RF: 0 Discharge Orders: Discharge Order (Routine); Ordered 04/19/20 Ordered By: Christina Lane Referrals: Christina Lane MD [Physician] - 05/23/20 9:00 am (* Your 5 week appointment is with Dr. Carty on 05/23/2020 at 9:00 am.) Patient Instructions: Ibuprofen (By mouth), Laxative, Stimulant (By mouth), Pre-eclampsia and Eclampsia (DC), OB Discharge Report, OB Food/Drug Interaction Guide, OB Home Care, OB Proud Parent Packet, OB Vaginal Deliveries - [facility] Activity Restrictions/Additional Instructions: Pelvic rest for 6 weeks, no heavy lifting for 6 weeks Discharge Attestations [employer] Time Spent in Discharge Care*: greater than 30 min Coding Level of Care Code Acute Basin Operator for Robin Hernandez
[2020-04-19 09:21] VITALS: BP 96/56; PULSE 81; RESP 16; TEMP 36.7; O2SAT 97
--- NOTE | 2020-04-19 16:35 | PC.RESP ---
Smoking Cessation information sent to patient.
== END 2020-04-19 10:25 | disposition home or self-care (01) | DRG 807 ==
PROVIDERS: Admitting Provider Obstetrics & Gynecology; PCP Family Medicine; Visit Provider Obstetrics & Gynecology
DX: O99.824 Streptococcus B carrier state complicating childbirth (principal); Z37.0 Single live birth; Z3A.39 39 weeks gestation of pregnancy; O99.334 Smoking (tobacco) complicating childbirth; F17.210 Nicotine dependence, cigarettes, uncomplicated; O99.52 Diseases of the respiratory system complicating childbirth; J44.9 Chronic obstructive pulmonary disease, unspecified; O69.81X0 Labor and delivery complicated by cord around neck, without compression, not applicable or unspecified
CPT/HCPCS: 12345; 36415; 59025; 59409; 85025; 85027; 96374; 99211; G0378; G0379; J0290; J3010

== ENCOUNTER → 2020-05-15 17:00 | Outpatient (BNVA) | payer MEDICAID, SELFPAY ==
[2020-02-01 11:37] VITALS: BP 100/59; BMI 19.3
== END ==
PROVIDERS: PCP Family Medicine; Visit Provider Nurse Practitioner Family
DX: R53.83 Other fatigue (principal); F41.9 Anxiety disorder, unspecified; F32.9 Major depressive disorder, single episode, unspecified
CPT/HCPCS: 80053; 82306; 82607; 84443; 85025

== ENCOUNTER → 2020-05-19 15:08 | Outpatient (BNVA) | payer MEDICAID, SELFPAY ==
[2020-02-01 11:37] VITALS: BP 100/59; BMI 19.3
== END ==
PROVIDERS: PCP Family Medicine; Visit Provider Obstetrics & Gynecology
DX: Z11.59 Encounter for screening for other viral diseases (principal); Z30.2 Encounter for sterilization
CPT/HCPCS: 87635

== ENCOUNTER 2020-05-25 06:08 | Day surgery (SDC) | payer MEDICAID, SELFPAY ==
[2020-02-01 11:37] VITALS: BP 100/59; BMI 19.3
[2020-05-23 10:19] VITALS: BMI 19.4
--- NOTE | 2020-05-23 10:33 | ANES.PREANE2 ---
Pre-Anesthetic Assessment Pre-Anesthetic Assessment: Height/Weight: Height 1.7 m Weight 56.245 kg Preop Diagnosis: undesired fertility Proposed Procedure: Operation Date: 05/25/20 08:00 Proposed Procedures p Laparoscopic bilateral total Salpingectomy 54301 Z30.2(Bilateral) - Christina Lane MD Familial anesthetic complications: None Social: Social History: Tobacco Airway: MP: 2 Dentition: False Pulmonary: Pulmonary: COPD Comments: bronchitis Hepatic: Comments: nocturnal pruritis GI: GI: GERD Musc/skel: Musc/skel: Fibromyalgia and Scoliosis Neuropsych: Neuropsych: Anxiety, Depression, HUDSON and Seizure (childhood (febrile)) Anesthetic Plan: ASA status: 2 Anesthesia: General Risk of > 500 ml blood loss (7ml/kg in children): No PFSH Anesthesia PFSH: Medical History Chronic major depressive disorder COPD (chronic obstructive pulmonary disease) /Asthma-----> diagnosed as a child and has never been hospitalized or intubated for asthma. Does have an albuterol inhaler which she uses once or twice a month. Think she has COPD as well. Fibromyalgia Diagnosed in 2014 GERD (gastroesophageal reflux disease) Symptoms controlled with omeprazole Intractable chronic migraine without aura and with status migrainosus Used to take Imitrex prior to the and was being managed by Dr. Maldonado and has already been trying Botox injections however stopped once she found out she was . No pertinent past medical history Denies diabetes, hypertension, seizures, DVT/PE. PDM: Dr. León PTSD (post-traumatic stress disorder) Surgical History History of laparoscopy (02/03/19) diagnostic-- Albino for ovarian cyst and pelvic pain--- normal pelvic anatomy noted and ovarian cyst had resolved. No specimens obtained. Operative report has been scanned. Family History Grandmother Diabetes maternal Father Aneurysm of the brain, at age 32 Son Seizure disorder Family/Other Seizure disorder paternal uncle Denies family history of Colon cancer Ovarian cancer Heart disease Hyperlipidemia Breast cancer Anesthesia complication Bleeding disorder Hypertension Uterine cancer Thyroid condition Stroke Social History Smoking and tobacco status: current every day smoker cigarettes Packs smoked per day: 0.75 [ Other cigarette details: Most smoked 1 PPD. Started smoking age 15 ] Second hand smoke exposure: Yes Alcohol intake: never Lives independently: Yes Household members: children Marital status: service: No Current occupational status: unemployed History of recent travel: No Current gender identity: Female Female Reproductive History: Date of last menstrual period: 07/17/19 Data Anesthesia Cardiac Studies: No Data to Display
[2020-05-25 06:29] LABS: OR HCG Qualitative Urine Negative (Negative)
--- NOTE | 2020-05-25 06:34 | P.ANESUD_ITS ---
Pre-Anesthetic Update Pre-Anesthetic Assessment: Date of Surgery/Procedure: 05/25/20 Preop Roxy gnosis: Multiparity desiring sterilization Proposed Procedure: Operation Date: 05/25/20 08:00 Proposed Procedures p Laparoscopic bilateral total Salpingectomy 13406 Z30.2(Bilateral) - Christina Lane MD Any changes to Pre-Anesthetic Assessment?: No Last Intake: NPO > 8hrs Labs Last 48hrs: Laboratory Results - last 48 hr 05/25/20 06:21 Urine HCG, Qual Negative Exam: Pre-Anes Outpt Exam: alert, oriented x 3, clear to auscultation bilaterally and regular rate & rhythm Cardiac Studies: No Data to Display
[2020-05-25] MEDS: sodium chloride 0.9% 1,000 ML 30 ML IV (07:04)
--- NOTE | 2020-05-25 07:07 | P.HPUD_ITS ---
Surgery/Procedure H&P Update DATE OF PROCEDURE: May 25, 2020 DATE H&P PERFORMED: 05/23/20 H&P UPDATE INFORMATION: I have reviewed H&P completed within last 30 days, I have examined patient prior to procedure, No changes to prior documentation and H&P is in [facility] [place] on date indicated PREOP DIAGNOSIS: Multiparity desiring sterilization PLANNED PROCEDURE: Operation Date: 05/25/20 08:00 Proposed Procedures p Laparoscopic bilateral total Salpingectomy 00980 Z30.2(Bilateral) - Christina Lane MD
[2020-05-25] MEDS: silver nitrate applicator 1 EACH TOPICAL (09:14)
[2020-05-25 09:18] VITALS: BP 114/74; PULSE 130; RESP 15; TEMP 36.8; O2SAT 100
[2020-05-25 09:25] VITALS: BP 114/66; PULSE 112; RESP 16; O2SAT 100
[2020-05-25 09:30] VITALS: BP 102/70; PULSE 108; RESP 16; O2SAT 94
--- NOTE | 2020-05-25 09:30 | PM.OP ---
Operative Report Date of procedure: May 25, 2020 OPERATIVE REPORT Date of surgery: 05/25/2020 Date of dictation: 05/25/2020 Preoperative diagnosis: Multiparity desiring permanent sterilization, COPD, depression, GERD, migraines Postoperative diagnosis/findings: 6-week size anteverted uterus, mobile, nontender, no adnexal masses, on laparoscopy no intra-abdominal pathology, normal tubes and ovaries bilaterally-right tube had a small paratubal cyst, no other lesions identified. Procedure done: Laparoscopic bilateral total salpingectomy for sterilization Specimens removed/disposition of specimens: Right and left fallopian tubes sent to pathology Surgeon: Dr. Christina Carty Physician clinic office assistant: Saadia Blake Anesthesia: General endotracheal tube anesthesia Estimated blood loss: Less than 25 ml Intravenous fluids: 1500 mL of LR Urine output: 50 mL of clear urine at the end of procedure Medications: As per anesthesia records Complications: None, patient was left to recovery in a stable condition. PROCEDURE: After consents were signed patient was taken to the operating room where she was placed under general anesthesia without any difficulty. She was placed supine on the table in the lithotomy position. Exam under anesthesia revealed findings noted above. She was then prepped and draped in usual sterile fashion. Weighted speculum and anterior wall retractors were placed in the vagina, cervix visualized and grasped with a tenaculum. ZUMI uterine manipulator was placed into the uterus without any difficulty. Catheter was placed, instruments were removed from the vagina and the legs were lowered. Attention was turned towards the abdomen where local anesthetic was injected in to her umbilicus. A 10 mm skin incision was made and a 10 mm port was placed through the umbilicus using an open technique--- fascia was identified and tented up with Delia clamps and directly incised using curved Mayos. Peritoneum was then bluntly entered digitally and palpation revealed no adhesions around site of entry. Rizo trocar was then attached to the fascia and inflated.. Once intra-abdominal entry was confirmed gas was turned on and intra-abdominal opening pressure was 2. The abdomen is insufflated to the pressure was 14. Blood pressure and heart rate dropped and as a result abdomen was desufflated and then reinsufflated to a pressure of 11 and she tolerated this better. Survey of the abdomen revealed no adhesions, no acute intra-abdominal pathology, normal tubes and ovaries bilaterally with the right fallopian tube showing a small paratubal cyst, no lesions of endometriosis identified.. Two 5 mm trocar was placed into the left and right lower quadrant under direct visualization after injecting local anesthetic. The Voyant device was used to clamp, cauterize and then cut the mesosalpinx under the fallopian tube starting at the fimbriated end and moving towards the uterus. This was done in a sequential fashion in such a way that the entire fallopian tube was from the sidewall and the uterus. The small cornual stump was cauterized as well. This was done first on the right side and then the left side without any difficulty. The right and left fallopian tubes were taken out of the umbilical port without any difficulty. No bleeding was noted at sites of surgery. Trochars were removed under direct visualization. All instruments removed from the abdomen and the abdomen was desufflated. The fascia on the umbilical port was closed with 0 Vicryl in a continuous fashion and good reapproximation was obtained-care was taken to tent up the fascia throughout the closure. The skin incisions was closed with 4-0 Monocryl in a subcuticular fashion good reapproximation and hemostasis was noted. The incisions were dressed with Steri-Strips Telfa and Tegaderm. The ZUMI and Aguirre catheter were removed and good hemostasis[default value] was noted. The patient was extubated without any difficulty and taken to the recovery room in a stable condition. FOLLOW UP: Follow-up in 2 weeks and 6 weeks with surgeon MEDICATION ON DISCHARGE: Colace 100 mg by mouth every 12 hours when necessary constipation, 30 tablets, no refills Ibuprofen 800 mg by mouth every 8 hours when necessary pain, 60 tablets, no refills. [place] 5/325 mg 1 tablet by mouth every 6 hours when necessary pain,25 tablets, no refills Continue other home medication DISPOSITION: Home in a stable condition Pre-op Diagnosis: Multiparity desiring sterilization
[2020-05-25 09:35] VITALS: BP 109/67; PULSE 107; RESP 18; TEMP 36.6; O2SAT 93
[2020-05-25 09:39] VITALS: BP 117/69; PULSE 101; RESP 18; TEMP 36.6; O2SAT 94
[2020-05-25 09:54] VITALS: BP 109/67; PULSE 99; RESP 17; TEMP 36.6; O2SAT 94
[2020-05-25] MEDS: HYDROcodone-acetaminophen 5-325 mg Tablet 1 TAB PO (10:00)
--- NOTE | 2020-05-25 14:45 | ANE.PACU2 ---
Inpatient post-anesthesia follow up: Airway intact: Yes Vital signs: Temperature 98 F Pulse Rate 99 Respiratory Rate 17 Blood Pressure 109/67 Pulse Oximetry 94 Oxygen Delivery Me thod Room Air Oxygen Flow Rate 6 Fraction of Inspir ed Oxygen Hydration adequate: Yes Nausea and vomiting: No Pain level: 3 Mental status: Baseline
== END 2020-05-25 11:25 | disposition home or self-care (01) ==
PROVIDERS: PCP Family Medicine; Visit Provider Obstetrics & Gynecology
PROC: (CPT 58661; principal; 2020-05-25 08:00)
DX: Z30.2 Encounter for sterilization (principal); J44.9 Chronic obstructive pulmonary disease, unspecified; F32.9 Major depressive disorder, single episode, unspecified; K21.9 Gastro-esophageal reflux disease without esophagitis; M79.7 Fibromyalgia; F17.210 Nicotine dependence, cigarettes, uncomplicated
CPT/HCPCS: 58661; 12345; 36415; 81025; 84703; 86850; 86900; 88302; J0461; J1100; J2250; J2405; J2550; J2704; J2710; J3010; J3490; J7030

== ENCOUNTER → 2020-06-01 08:36 | Outpatient (BNVA) | payer MEDICAID, SELFPAY ==
[2020-02-01 11:37] VITALS: BP 100/59; BMI 19.3
== END ==
PROVIDERS: Family Provider Nurse Practitioner; PCP Family Medicine; Visit Provider Counselor Professional
DX: F32.9 Major depressive disorder, single episode, unspecified (principal)
CPT/HCPCS: 90834; 87635

== ENCOUNTER → 2020-06-26 16:40 | Outpatient (BNVA) | payer MEDICAID, SELFPAY ==
[2020-02-01 11:37] VITALS: BP 100/59; BMI 19.3
== END ==
PROVIDERS: Family Provider Nurse Practitioner; PCP Family Medicine; Visit Provider Family Medicine
DX: R74.8 Abnormal levels of other serum enzymes (principal); E53.8 Deficiency of other specified B group vitamins; R53.83 Other fatigue
CPT/HCPCS: 80053

== ENCOUNTER → 2020-06-29 10:06 | Outpatient (BNVA) | payer MEDICAID, SELFPAY ==
[2020-02-01 11:37] VITALS: BP 100/59; BMI 19.3
== END ==
PROVIDERS: Family Provider Nurse Practitioner; PCP Family Medicine; Visit Provider Counselor Professional
DX: F32.9 Major depressive disorder, single episode, unspecified (principal)
CPT/HCPCS: 90834

== ENCOUNTER 2020-07-02 12:47 | Emergency (ER) | payer MEDICAID, SELFPAY ==
[2020-02-01 11:37] VITALS: BP 100/59; BMI 19.3
[2020-07-02 12:49] VITALS: BP 121/69; PULSE 60; RESP 16; TEMP 36.9; O2SAT 95; BMI 18.6
--- NOTE | 2020-07-02 12:50 | XRR_ITS ---
PROCEDURE INFORMATION: Exam: XR Left Foot Exam date and time: 07/02/2020 12:58 PM Age: 34 years old Clinical indication: Injury or trauma; Other: Kicked bed; Blunt trauma; Toes; Left lesser toe(s); Additional info: Toe injury TECHNIQUE: Imaging protocol: XR Left foot. Views: 3 or more views. COMPARISON: No relevant prior studies available. FINDINGS: Bones/joints: There is an oblique fracture through the shaft of the proximal phalanx of the 4th toe. The distal fragment is displaced and tilted laterally. Soft tissues: Normal. XR/XR foot LT min 3V* 15244 IMPRESSION: Oblique fracture of the shaft of the proximal phalanx of the 4th toe.
--- NOTE | 2020-07-02 12:51 | W.ED.GENADLT ---
HPI - General Adult General: Chief complaint: Extremity Injury, Lower Stated complaint: LEFT 2ND TOE DEFORMITY Time Seen by Provider: 07/02/20 12:49 Source: patient Mode of arrival: EMS Limitations: no limitations History of Present Illness: HPI narrative: Patient is a well-appearing 34-year-old female who sustained injury to her left fourth toe. She states she was attempting to lay on the couch when the left fourth toe somehow got wedged between a small gap between the pedestal's of the couch. She felt an immediate pop and states she heard an audible crack and had immediate pain in the left fourth toe. She sustained deformity to the left fourth toe. She denies any other significant injury. She states that whenever she flopped herself onto the couch and lifted her leg up in the air she felt something also strain in the left groin/proximal thigh area however has minimal discomfort here. Onset (ago): minute(s) (45) Location: lower extremity Severity: moderate Quality: sharp and constant Pain Consistency: constant Relieving factors: movement Exacerbating factors: movement Associated symptoms: Deny chest pain, confusion, diaphoresis, dyspnea, headache(s), malaise, nausea, rash, palpitations, syncope or vomiting Review of Systems Const: Denies: fever(s), malaise or diaphoresis Card: Denies: chest pain, palpitations or syncope Resp: Denies: dyspnea GI: Denies: abdominal pain, nausea or vomiting Musc: Reports: extremity pain and joint pain; Denies: back pain or extremity swelling Skin/Breast: Denies: rash Neuro: Denies: headache(s) or confusion PFS ED PFSH: Medical History Chronic major depressive disorder COPD (chronic obstructive pulmonary disease) /Asthma-----> diagnosed as a child and has never been hospitalized or intubated for asthma. Does have an albuterol inhaler which she uses once or twice a month. Think she has COPD as well. Fibromyalgia Diagnosed in 2014 GERD (gastroesophageal reflux disease) Symptoms controlled with omeprazole Intractable chronic migraine without aura and with status migrainosus Used to take Imitrex prior to the and was being managed by Dr. Maldonado and has already been trying Botox injections however stopped once she found out she was . No pertinent past medical history Denies diabetes, hypertension, seizures, DVT/PE. PDM: Dr. León PTSD (post-traumatic stress disorder) Surgical History History of laparoscopy (02/03/19) 02/03/2019---diagnostic-- Albino for ovarian cyst and pelvic pain--- normal pelvic anatomy noted and ovarian cyst had resolved. No specimens obtained. Operative report has been scanned. S/P tubal ligation 05/25/20---Laparoscopic bilateral total salpingectomy for sterilization. Performed by Dr. Carty at [facility]. -Pathology showed bilateral fallopian tubes-benign Family History Grandmother Diabetes maternal Father Aneurysm of the brain, at age 32 Son Seizure disorder Family/Other Seizure disorder paternal uncle Denies family history of Colon cancer Ovarian cancer Heart disease Hyperlipidemia Breast cancer Anesthesia complication Bleeding disorder Hypertension Uterine cancer Thyroid condition Stroke Social History Smoking and tobacco status: current every day smoker cigarettes Packs smoked per day: 0.75 [ Other cigarette details: Most smoked 1 PPD. Started smoking age 15 ] Second hand smoke exposure: Yes Alcohol intake: never Lives independently: Yes Household members: children Marital status: service: No Current occupational status: unemployed History of recent travel: No Current gender identity: Female Special sonja needs: No Agree to transfusion: Yes Female Reproductive History: Date of last menstrual period: 07/17/19 Physical Exam Const: COMMON NORMALS: no acute distress, average body habitus, alert and well nourished GENERAL APPEARANCE: cooperative, comfortable and well kempt; not in distress ORIENTATION/CONSCIOUSNESS: Yes awake HENMT: COMMON NORMALS: normocephalic, atraumatic and Normal external nose present HEAD & SCALP: normocephalic and atraumatic NOSE: Normal external nose present MOUTH: Normal oral and palatal mucosa present Eye: COMMON NORMALS: EOMs intact bilaterally and conjunctivae normal CONJUNCTIVA: Yes conjunctivae normal Neck/C-Spine: GENERAL: Yes normal visual inspection, No tracheal deviation and No submandibular swelling Chest: COMMONS NORMALS: normal inspection of the chest Resp: COMMON NORMALS: normal respiratory effort, No retractions and No use of accessory muscles Cardio: COMMON NORMALS: regular rhythm and Peripheral pulses 2+ throughout RHYTHM: regular rhythm PERIPHERAL PULSES: Peripheral pulses 2+ throughout GI: COMMON NORMALS: Normal to inspection, nondistended, normoactive bowel sounds present, Soft to palpation and non-tender PALPATION: Yes Soft to palpation Extremity: COMMON NORMALS: full ROM and no pedal edema NARRATIVE EXTREMITY EXAM: Left fourth toe with deviation at the MTP joint consistent with possible dislocation and/or fracture of the fourth toe phalanx. Patient has 2+ DP and PT pulses bilaterally. Normal color of the foot and toes. Normal sensation. Neuro: COMMON NORMALS: no focal motor deficits SENSORIUM/ORIENTATION: Yes alert Psych: APPEARANCE: Yes well kempt Skin: COMMON NORMALS: no rashes or lesions noted GENERAL SKIN EXAM: no rashes or lesions noted Course ED course: Patient will obtain x-ray of the left foot which shows a mildly displaced proximal phalanx fracture of the left fourth toe. This was reduced at bedside with traction and deyanira taped to the third toe for realignment. Patient was given a postop shoe. She will be discharged with recommendation to follow-up with orthopedics and will contact them tomorrow. Vital Signs: Vital signs: Vital Signs Temperature 98.4 F 07/02/20 12:49 Pulse Rate 62 07/02/20 13:47 Respiratory Rate 16 07/02/20 13:47 Blood Pressure 121/69 07/02/20 13:47 Pulse Oximetry 98 07/02/20 13:47 MDM - General Adult MDM Narrative: Medical decision making narrative: Left fourth toe proximal phalanx fracture. This was reduced and deyanira taped to the third toe and patient was given a postop splint. She will follow up with orthopedics. Discharge Plan Discharge Patient Disposition: Home Clinical Impression: Fracture of toe Qualifiers: Encounter type: initial encounter Toe: lesser toe Fracture type: closed Phalanx: proximal Fracture alignment: displaced Laterality: left Qualified Code(s): S92.512A - Displaced fracture of proximal phalanx of left lesser toe(s), initial encounter for closed fracture Condition: Stable Prescriptions: [place] 5-325 mg tablet 1 tab PO Q6H PRN (Reason: pain) Qty: 7 RF: 0 No Action albuterol sulfate [ProAir HFA] 90 mcg/actuation HFA aerosol inhaler 2 puff INHALATION Q6H PRN (Reason: shortness of breath) Qty: 8.5 RF: 0 omeprazole 20 mg capsule,delayed release(DR/EC) 20 mg PO DAILY PRN (Reason: Indigestion) RF: 0 Zyrtec 10 mg capsule 10 mg PO DAILY PRN (Reason: Allergy Symptoms) Qty: 90 RF: 2 fluticasone propionate [Flonase Allergy Relief] 50 mcg/actuation spray,suspension 1 spray intranasal DAILY PRNRF: 0 buspirone 7.5 mg tablet 7.5 mg PO BID Qty: 60 RF: 1 bupropion HCl [Wellbutrin XL] 150 mg tablet extended release 24 hr 150 mg PO QAM Qty: 30 RF: 1 cholecalciferol (vitamin D3) 50 mcg (2,000 unit) capsule 50 mcg PO DAILY Qty: 90 RF: 4 cyanocobalamin (vitamin B-12) 1,000 mcg/mL solution 1,000 mcg IM .weekly Qty: 4 RF: 0 Discharge Orders: Discharge ED (Routine); Ordered 07/02/20 Ordered By: Jona Borges Referrals: Vaughn Jimenez MD [Physician] - 4-7 days (Proximal Phalanx fracture of the left fourth toe.) Uma León MD [Primary Care Provider] - Discharge Diet: Regular Discharge Activity: Increase activity as tolerated Patient Instructions: Opioid Safety Coding Level of Care Code ED Cargo Inspector for Chg Fwd Exam Comprehensive
[2020-07-02 13:47] VITALS: BP 121/69; PULSE 62; RESP 16; O2SAT 98
--- NOTE | 2020-07-02 13:50 | PC.NURSE ---
emd taped broken toe surgical shoe applied to foot
== END 2020-07-02 13:50 | disposition home or self-care (01) ==
PROVIDERS: Emergency Provider Student in an Organized Health Care Education/Training Program; PCP Family Medicine
DX: S92.512A Displaced fracture of proximal phalanx of left lesser toe(s), initial encounter for closed fracture (principal); J44.9 Chronic obstructive pulmonary disease, unspecified; F17.210 Nicotine dependence, cigarettes, uncomplicated; X58.XXXA Exposure to other specified factors, initial encounter
CPT/HCPCS: 12345; 73630; 99283

== ENCOUNTER → 2020-07-12 11:38 | Outpatient (BNVA) | payer MEDICAID, SELFPAY ==
[2020-02-01 11:37] VITALS: BP 100/59; BMI 19.3
== END ==
PROVIDERS: PCP Family Medicine; Visit Provider Nurse Practitioner Family
DX: E53.8 Deficiency of other specified B group vitamins (principal); R74.8 Abnormal levels of other serum enzymes
CPT/HCPCS: 82607; 82977; 83915

== ENCOUNTER → 2020-07-27 12:45 | Outpatient (BNVA) | payer MEDICAID, SELFPAY ==
[2020-02-01 11:37] VITALS: BP 100/59; BMI 19.3
== END ==
PROVIDERS: PCP Family Medicine; Visit Provider Counselor Professional
DX: F32.9 Major depressive disorder, single episode, unspecified (principal)
CPT/HCPCS: 90834

== ENCOUNTER 2020-08-03 09:46 | Outpatient (CLI) | payer MEDICAID, SELFPAY ==
[2020-02-01 11:37] VITALS: BP 100/59; BMI 19.3
--- NOTE | 2020-08-03 10:00 | NM_ITS ---
WS: [id number] NUCLEAR MEDICINE HIDA SCAN WITH GALLBLADDER EJECTION FRACTION HISTORY: R10.9 - Unspecified abdominal pain COMPARISON: None available. TECHNIQUE: The patient was intravenously injected with 7.3 mCi of TC99m Mebrofenin. Immediate imaging over the right upper quadrant was followed by 5 minute image and additional images for a total of 60 minutes. Normal uptake of radiotracer throughout the liver. Activity identified in the gallbladder at 15 minutes and well distended by 60 minutes. Activity in the proximal small bowel was seen by 20 minutes. Good washout of the radiotracer from the liver by 60 minutes. The patient then drank 8 ounces of Ensure Plus. Ejection fraction at 60 minutes was 90%. Normal GB ej ection fraction is 35-75%. Post fatty meal symptoms: None. NM/NM hepatobiliary w phar* [id number] IMPRESSION: 1. Normal HIDA scan. 2. Normal gallbladder ejection fraction.
== END 2020-08-03 09:47 | disposition home or self-care (01) ==
PROVIDERS: PCP Family Medicine; Visit Provider Surgery
DX: R10.9 Unspecified abdominal pain (principal)
CPT/HCPCS: 78227; A9537

== ENCOUNTER → 2020-08-28 11:20 | Outpatient (BNVA) | payer MEDICAID, SELFPAY ==
[2020-02-01 11:37] VITALS: BP 100/59; BMI 19.3
== END ==
PROVIDERS: PCP Family Medicine; Visit Provider Surgery
DX: R10.9 Unspecified abdominal pain (principal)
CPT/HCPCS: 87635

== ENCOUNTER 2020-08-31 09:48 | Day surgery (SDC) | payer MEDICAID, SELFPAY ==
[2020-02-01 11:37] VITALS: BP 100/59; BMI 19.3
[2020-08-30 11:05] VITALS: BMI 17.8
--- NOTE | 2020-08-31 10:15 | ANES.PREANE2 ---
Pre-Anesthetic Assessment Pre-Anesthetic Assessment: Height/Weight: Height 1.7 m Weight 51.71 kg Preop Diagnosis: Multiparity desiring sterilization Proposed Procedure: Operation Date: 08/31/20 11:30 Proposed Procedures p Colonoscopy 83584 R10.9(Not Applicable) - Mathew Azul MD Familial anesthetic complications: None Social: Social History: Tobacco and No alcohol Exam: Pre-Anes Outpt Exam: alert, oriented x 3, clear to auscultation bilaterally and regular rate & rhythm Airway: Cervical ROM: WNL MP: 1 Dentition: False Pulmonary: Pulmonary: Asthma and COPD (doctors think she was misdiagnosed, but she does use inhaler) GI: GI: GERD Metabolic: Comments: B12 def Musc/skel: Musc/skel: Scoliosis Neuropsych: Neuropsych: Anxiety, Depression and Seizure (at age 3) Comments: memory deficits Anesthetic Plan: ASA status: 2 Anesthesia: MAC Risk of > 500 ml blood loss (7ml/kg in children): No PFSH Anesthesia PFSH: Medical History Chronic major depressive disorder COPD (chronic obstructive pulmonary disease) /Asthma-----> diagnosed as a child and has never been hospitalized or intubated for asthma. Does have an albuterol inhaler which she uses once or twice a month. Think she has COPD as well. Fibromyalgia Diagnosed in 2014 GERD (gastroesophageal reflux disease) Symptoms controlled with omeprazole Intractable chronic migraine without aura and with status migrainosus Used to take Imitrex prior to the and was being managed by Dr. Maldonado and has already been trying Botox injections however stopped once she found out she was . PTSD (post-traumatic stress disorder) Surgical History History of laparoscopy (02/03/19) 02/03/2019---diagnostic-- Albino for ovarian cyst and pelvic pain--- normal pelvic anatomy noted and ovarian cyst had resolved. No specimens obtained. Operative report has been scanned. S/P tubal ligation 05/25/20---Laparoscopic bilateral total salpingectomy for sterilization. Performed by Dr. Carty at [facility]. -Pathology showed bilateral fallopian tubes-benign Family History Grandmother Diabetes maternal Father Aneurysm of the brain, at age 32 Son Seizure disorder Family/Other Seizure disorder paternal uncle Denies family history of Colon cancer Ovarian cancer Heart disease Hyperlipidemia Breast cancer Anesthesia complication Bleeding disorder Hypertension Uterine cancer Thyroid condition Stroke Social History Smoking and tobacco status: current every day smoker cigarettes Packs smoked per day: 0.75 [ Other cigarette details: Most smoked 1 PPD. Started smoking age 15 ] Second hand smoke exposure: Yes Alcohol intake: never Lives independently: Yes Household members: children Marital status: service: No Current occupational status: unemployed History of recent travel: No Current gender identity: Female Special sonja needs: No Agree to transfusion: Yes Female Reproductive History: Date of last menstrual period: 08/20/20 Data Anesthesia Cardiac Studies: No Data to Display
[2020-08-31] MEDS: sodium chloride 0.9% 1,000 ML 30 ML IV (10:45)
[2020-08-31 11:33] LABS: OR HCG Qualitative Urine Negative (Negative)
--- NOTE | 2020-08-31 13:05 | W.PM.OPSUD ---
Surgery/Procedure H&P Update DATE OF PROCEDURE: August 31, 2020 DATE H&P PERFORMED: 08/15/20 H&P UPDATE INFORMATION: I have reviewed H&P completed within last 30 days, I have examined patient prior to procedure and No changes to prior documentation PREOP DIAGNOSIS: Multiparity desiring sterilization PLANNED PROCEDURE: Operation Date: 08/31/20 11:30 Proposed Procedures p Colonoscopy [id number] R10.9(Not Applicable) - Mathew Azul MD
[2020-08-31 13:33] VITALS: BP 83/65; PULSE 82; RESP 18; TEMP 36.9; O2SAT 95
--- NOTE | 2020-08-31 13:33 | ANE.PACU2 ---
Inpatient post-anesthesia follow up: Airway intact: Yes Vital signs: Temperature Pulse Rate Respiratory Rate Blood Pressure Pulse Oximetry Oxygen Delivery Me thod Oxygen Flow Rate Fraction of Inspir ed Oxygen Hydration adequate: Yes Nausea and vomiting: No Pain level: 1 Mental status: Baseline
== END 2020-08-31 14:11 | disposition home or self-care (01) ==
PROVIDERS: PCP Family Medicine; Visit Provider Surgery
PROC: 0DJD8ZZ Inspection of Lower Intestinal Tract, Via Natural or Artificial Opening Endoscopic (ICD-10-PCS; CPT 45378; principal; 2020-08-31 11:30)
DX: K52.9 Noninfective gastroenteritis and colitis, unspecified (principal); J44.9 Chronic obstructive pulmonary disease, unspecified; K21.9 Gastro-esophageal reflux disease without esophagitis; F41.9 Anxiety disorder, unspecified; F32.9 Major depressive disorder, single episode, unspecified; M79.7 Fibromyalgia; F17.210 Nicotine dependence, cigarettes, uncomplicated
CPT/HCPCS: 45380; 83630; 84311; 84703; 87493; 87506; 88305; 96360; 96361; J2704; J7030

== ENCOUNTER → 2020-11-15 11:13 | Outpatient (BNVA) | payer MEDICAID, SELFPAY ==
[2020-02-01 11:37] VITALS: BP 100/59; BMI 19.3
== END ==
PROVIDERS: PCP Family Medicine; Visit Provider Nurse Practitioner Family
DX: Z20.822 Contact with and (suspected) exposure to COVID-19 (principal)
CPT/HCPCS: 87635

== ENCOUNTER → 2021-02-12 12:25 | Outpatient (BNVA) | payer MEDICAID, SELFPAY ==
[2020-02-01 11:37] VITALS: BP 100/59; BMI 19.3
== END ==
PROVIDERS: PCP Family Medicine
DX: N39.0 Urinary tract infection, site not specified (principal); R63.4 Abnormal weight loss; R53.83 Other fatigue; L85.3 Xerosis cutis; L65.9 Nonscarring hair loss, unspecified; R41.3 Other amnesia; E53.8 Deficiency of other specified B group vitamins
CPT/HCPCS: 80053; 81003; 82607; 82746; 84439; 84443; 84481; 85025; 87077; 87086; 87184

== ENCOUNTER → 2021-04-23 16:09 | Outpatient (BNVA) | payer MEDICAID, SELFPAY ==
[2020-02-01 11:37] VITALS: BP 100/59; BMI 19.3
== END ==
PROVIDERS: PCP Family Medicine; Visit Provider Nurse Practitioner
DX: J02.9 Acute pharyngitis, unspecified (principal)
CPT/HCPCS: 87070

== ENCOUNTER → 2021-04-25 17:37 | Outpatient (BNVA) | payer MEDICAID, SELFPAY ==
[2020-02-01 11:37] VITALS: BP 100/59; BMI 19.3
== END ==
PROVIDERS: PCP Family Medicine; Visit Provider Family Medicine
DX: M54.9 Dorsalgia, unspecified (principal); E04.9 Nontoxic goiter, unspecified; J44.9 Chronic obstructive pulmonary disease, unspecified; H66.90 Otitis media, unspecified, unspecified ear; Z80.1 Family history of malignant neoplasm of trachea, bronchus and lung
CPT/HCPCS: 81000; 82103; 82785; 84439; 84443; 84481; 85025; 86003

== ENCOUNTER 2021-09-05 08:07 | Outpatient (CLI) | payer MEDICAID, SELFPAY ==
[2020-02-01 11:37] VITALS: BP 100/59; BMI 19.3
--- NOTE | 2021-09-05 14:03 | PFTS_ITS ---
Date of Study:09/05/21 Date of Dictation: 09/07/2021 MECHANICS: Postbronchodilator forced vital capacity (FVC) is normal. Postbronchodilator forced expiratory volume in one second (FEV1) is moderately reduced. FEV1/FVC is reduced. There is no significant postbronchodilator response FLOW VOLUME LOOP: Sloping of expiratory limb suggestive of airway obstruction . LUNG VOLUMES: Total lung capacity (TLC) is normal . Residual volume (RV) is normal. DIFFUSING CAPACITY FOR CARBON MONOXIDE: Moderately reduced . INTERPRETATION: The spirometry consistent with moderate obstruction. There is no significant response to bronchodilators. Lung volumes are normal. There is moderate gas transfer defect. Constellation of findings consistent with moderate emphysema. Correlate clinically. MTDD
== END 2021-09-05 08:08 | disposition home or self-care (01) ==
PROVIDERS: PCP Family Medicine; Visit Provider Internal Medicine Pulmonary Disease
DX: J44.9 Chronic obstructive pulmonary disease, unspecified (principal)
CPT/HCPCS: 94060; 94726; 94729; J7611

== ENCOUNTER → 2021-09-07 10:21 | Outpatient (BNVA) | payer MEDICAID, SELFPAY ==
[2020-02-01 11:37] VITALS: BP 100/59; BMI 19.3
== END ==
PROVIDERS: PCP Family Medicine; Visit Provider Internal Medicine Pulmonary Disease
DX: J44.9 Chronic obstructive pulmonary disease, unspecified (principal); Z80.1 Family history of malignant neoplasm of trachea, bronchus and lung; F17.210 Nicotine dependence, cigarettes, uncomplicated; Z71.6 Tobacco abuse counseling; K21.9 Gastro-esophageal reflux disease without esophagitis
CPT/HCPCS: 99214

== ENCOUNTER → 2021-09-12 15:52 | Outpatient (BNVA) | payer MEDICAID, SELFPAY ==
[2020-02-01 11:37] VITALS: BP 100/59; BMI 19.3
== END ==
PROVIDERS: PCP Family Medicine; Visit Provider Nurse Practitioner Family
DX: R51.9 Headache, unspecified (principal); Z82.49 Family history of ischemic heart disease and other diseases of the circulatory system; G43.711 Chronic migraine without aura, intractable, with status migrainosus
CPT/HCPCS: 80053; 84443; 85025

== ENCOUNTER 2021-10-11 23:59 | Emergency (ER) | payer MEDICAID, SELFPAY ==
[2020-02-01 11:37] VITALS: BP 100/59; BMI 19.3
[2021-10-12 00:01] VITALS: BP 106/60; PULSE 81; RESP 17; TEMP 36.8; O2SAT 100; BMI 16.9
[2021-10-12 00:15] VITALS: BP 128/77; PULSE 79; RESP 18; O2SAT 100
--- NOTE | 2021-10-12 00:25 | ED_ITS ---
HPI - Weakness General: Chief complaint: Weakness Stated complaint: WEAKNESS Time Seen by Provider: 10/12/21 00:08 History of Present Illness: 35-year-old female comes in today with complaints of feeling of passing out. Patient reports she had sudden onset of just generalized weakness and near syncope. Patient sat down and then was not able to move for say anything but recalls all events around her. Patient is improving since she got to the ER. Patient does have a history of anxiety, irritable bowel syndrome, depression, GERD, B12 deficiency, COPD, and chronic pain syndrome. Patient is very talkative at this time reports multiple stressors as being a single parent with a 7-year-old and a 1-year-old. Patient also reports that her mother has cancer. Patient was working today getting things ready for a yard sale and was sweating a lot reports only eating breakfast. Patient does have a headache at this time. Associated symptoms: Reports headache(s) and nausea; Denies chest pain, chills, fever(s) or vomiting Review of Systems General: Reports: 10 or more systems reviewed and unremarkable except in HPI and below Const: Reports: fatigue; Denies: fever(s) or chills Card: Denies: chest pain Resp: Denies: dyspnea GI: Reports: nausea and diarrhea; Denies: vomiting : Denies: difficulty voiding Skin/Breast: Denies: rash Neuro: Reports: headache(s) and weakness in extremities PFSH ED PFSH: Medical History Chronic major depressive disorder COPD (chronic obstructive pulmonary disease) /Asthma-----> diagnosed as a child and has never been hospitalized or intubated for asthma. Does have an albuterol inhaler which she uses once or twice a month. Think she has COPD as well. Family history of lung cancer Fibromyalgia Diagnosed in 2014 GERD (gastroesophageal reflux disease) Symptoms controlled with omeprazole Intractable chronic migraine without aura and with status migrainosus PTSD (post-traumatic stress disorder) Surgical History History of laparoscopy (02/03/19) 02/03/2019---diagnostic-- Albino for ovarian cyst and pelvic pain--- normal pelvic anatomy noted and ovarian cyst had resolved. No specimens obtained. Operative report has been scanned. S/P tubal ligation 05/25/20---Laparoscopic bilateral total salpingectomy for sterilization. Performed by Dr. Carty at [facility]. -Pathology showed bilateral fallopian tubes-benign Status post colonoscopy (08/31/20) Family History Grandmother Diabetes maternal Father Aneurysm of the brain, at age 32 Son Seizure disorder Family/Other Seizure disorder paternal uncle Denies family history of Colon cancer Ovarian cancer Heart disease Hyperlipidemia Breast cancer Anesthesia complication Bleeding disorder Hypertension Uterine cancer Thyroid condition Stroke Social History Smoking and tobacco status: current every day smoker cigarettes Packs smoked per day: 1.5 Years cigarettes smoked: 23 [ Other cigarette details: Started smoking age 12 ] Second hand smoke exposure: Yes Smoking risk assessment/counseling performed?: Yes Alcohol intake: unknown Desire information about alcohol rehabilitation?: No Counseling given: No Desire information about substance/drug rehabilitation?: No Counseling given: No Adopted: No Caregiver/support person: No Lives independently: Yes Household members: children Marital status: service: No Current occupational status: unemployed History of recent travel: No Current gender identity: Female Special sonja needs: No Agree to transfusion: Yes Female Reproductive History: Date of last menstrual period: 08/20/20 Physical Exam Const: COMMON NORMALS: alert HENMT: COMMON NORMALS: normocephalic HEAD & SCALP: normocephalic TEETH & GINGIVA: Yes edentulous Neck/C-Spine: COMMON NORMALS: full ROM Resp: COMMON NORMALS: normal respiratory effort and clear to auscultation bilaterally AUSCULTATION: clear to auscultation bilaterally Cardio: COMMON NORMALS: regular rate and regular rhythm RATE: regular rate RHYTHM: regular rhythm GI: AUSCULTATION: Yes normoactive bowel sounds PALPATION: No Tenderness to palpation present (GI) Extremity: COMMON NORMALS: no pedal edema Neuro: SENSORIUM/ORIENTATION: Yes alert Psych: COMMON NORMALS: mental status grossly normal Skin: COMMON NORMALS: no rashes or lesions noted GENERAL SKIN EXAM: no rashes or lesions noted Course Vital Signs: Vital signs: Vital Signs Temperature 98.3 F 10/12/21 00:01 Pulse Rate 82 10/12/21 01:22 Respiratory Rate 17 10/12/21 01:22 Blood Pressure 104/62 10/12/21 01:22 Pulse Oximetry 99 10/12/21 01:22 MDM - Weakness Medical Decision Making 35-year-old female comes in today with complaints of weakness and headache. Patient reports that she was getting ready for a yard sale tomorrow and had been doing a lot of work today and had sweating quite a bit with only eating breakfast. This evening patient started feeling lightheaded like she was going to pass out and was trying to get something to eat thinking her blood sugar was low. She stated then she just sat down and could not move but she recalls all events around her and was able to gesture to her son who was able to go get her mother. Patient was then brought to the ER at this time she was able to talk and carry on a conversation. Patient was very talkative and discussed being a single mother with 2 children and helping care for her mother that has cancer. On exam patient was alert and oriented. Patient moves all extremities well. Skin was warm and dry. No signs of focal neural deficits was noted. Vital signs were normal. Differential diagnosis includes hypoglycemia, near syncopal episode, anxiety, depression, migraine, dehydration. Laboratory values noted a white count of 14,000, potassium was 3.3, sodium 135, blood glucose was 92, creatinine 0.6. Patient was given 1 L of IV fluids and treated for headache with ketorolac and Reglan. Patient had resolution of headache and felt much improved after fluids. I believe the patient probably is just under a lot of stress and was working hard today and sweating and also not eating appropriately which caused this event. After IV fluids and medication for her headache patient was much improved and I felt that patient she was safe to go home. I discussed patient taking time for herself in order to reduce her stressors and then also encourage healthy diet and fluids. Patient reported understanding and agreed to plan, with need for follow-up. Lab Data : 10/12/21 00:12 10/12/21 00:12 Laboratory Results WBC 14.2 10^3/uL (4.0-10.0) H 10/12/21 00:12 RBC 4.56 10^6/uL (4.1-5.3) 10/12/21 00:12 Hgb 14.1 g/dL (11.5-15.3) 10/12/21 00:12 Hct 40.9 % (37.0-47.0) 10/12/21 00:12 MCV 89.7 fl (81-99) 10/12/21 00:12 MCH 30.9 pg (28.0-34.0) 10/12/21 00:12 MCHC 34.5 g/dL (30.0-36.0) 10/12/21 00:12 RDW 13.4 % (12.1-15.1) 10/12/21 00:12 Plt Count 229 10^3/cmm (130-400) 10/12/21 00:12 MPV 9.9 fL (7.4-10.4) 10/12/21 00:12 Neut % (Auto) 79.4 % 10/12/21 00:12 Lymph % (Auto) 12.2 % 10/12/21 00:12 Bath % (Auto) 6.9 % 10/12/21 00:12 Eos % (Auto) 0.8 % 10/12/21 00:12 Baso % (Auto) 0.3 % 10/12/21 00:12 Neut # (Auto) 11.25 10^3/uL (1.8-7.7) H 10/12/21 00:12 Lymph # (Auto) 1.7 10^3/uL (0.8-4.8) 10/12/21 00:12 Bath # (Auto) 1.0 10^3/uL (0.2-0.9) H 10/12/21 00:12 Eos # (Auto) 0.1 10^3/uL (0.0-0.8) 10/12/21 00:12 Baso # (Auto) 0.0 10^3/uL (0.0-0.1) 10/12/21 00:12 Nucleated RBC % (auto) 0 % 10/12/21 00:12 Nucleated RBCs # 0.0 /100WBC 10/12/21 00:12 Sodium 135 mmol/L (136-145) L 10/12/21 00:12 Potassium 3.3 mmol/L (3.5-5.1) L 10/12/21 00:12 Chloride 100 mmol/L (98-107) 10/12/21 00:12 Carbon Dioxide 24 mmol/L (22-29) 10/12/21 00:12 Anion Gap 14.3 (5-19) 10/12/21 00:12 BUN 9 mg/dL (6-20) 10/12/21 00:12 Creatinine 0.6 mg/dL (0.5-0.9) 10/12/21 00:12 GFR Calculation 114.4 mL/min (90-130) 10/12/21 00:12 Glucose 92 mg/dL (65-115) 10/12/21 00:12 Calculated Osmolality 278 mOsm/kg (285-295) L 10/12/21 00:12 Calcium 8.7 mg/dL (8.5-10.5) 10/12/21 00:12 Total Bilirubin 0.4 mg/dL (0.15-1.2) 10/12/21 00:12 AST 19 U/L (0-32) 10/12/21 00:12 ALT 19 U/L (0-33) 10/12/21 00:12 Alkaline Phosphatase 88 IU/L (35-105) 10/12/21 00:12 Total Protein 6.7 g/dL (6.6-8.7) 10/12/21 00:12 Albumin 4.1 g/dL (3.5-5.2) 10/12/21 00:12 Globulin 2.6 g/dL (1.3-4.6) 10/12/21 00:12 HCG, Qual Negative (Negative) 10/12/21 00:12 Urine Color Yellow (Yellow) 10/12/21 00:40 Urine Appearance Clear (CLEAR) 10/12/21 00:40 Urine pH 5 (5-7) 10/12/21 00:40 Ur Specific [place] 1.015 (1.005-1.030) 10/12/21 00:40 Urine Protein Neg (Negative) 10/12/21 00:40 Urine Glucose (UA) Norm (Normal) 10/12/21 00:40 Urine Ketones Negative (Negative) 10/12/21 00:40 Urine Blood Neg (Negative) 10/12/21 00:40 Urine Nitrate Negative (Negative) 10/12/21 00:40 Urine Bilirubin Neg (Negative) 10/12/21 00:40 Urine Urobilinogen Norm mg/dL (Negative) 10/12/21 00:40 Ur Leukocyte Esterase Negative (Negative) 10/12/21 00:40 EKG Data EKG 1: EKG interpretation date: 10/12/21 EKG interpretation time: 00:31 Interpretation: EKG shows a sinus rhythm with a regular rate at [address] elevation or ectopy is noted. No prior exam is available at this time for comparison. Discharge Plan Discharge Patient Disposition: Home Clinical Impression: Near syncope, Dehydration Condition: Stable Prescriptions: No Action omeprazole 20 mg tablet,delayed release (DR/EC) 20 mg PO DAILY 0RF Spiriva with HandiHaler 18 mcg capsule, w/inhalation device 1 cap inhalation DAILY Qty: 30 3RF Rx Instructions: puncture 1 cap using device; one dose = 2 inhalations albuterol sulfate [ProAir HFA] 90 mcg/actuation HFA aerosol inhaler 2 puff INHALATION Q6H PRN (Reason: shortness of breath) Qty: 8.5 0RF fluticasone propionate [Flonase Allergy Relief] 50 mcg/actuation spray,suspension 1 spray intranasal DAILY Qty: 16 5RF Rx Instructions: administer into each nostril buspirone 7.5 mg tablet 7.5 mg PO BID Qty: 60 1RF Hold Instructions: Patient No Longer Taking hydroxyzine HCl 25 mg tablet 25 mg PO .qhs PRN (Reason: itching) Qty: 30 2RF Hold Instructions: Sleepy cetirizine 10 mg tablet 10 mg PO DAILY Qty: 90 1RF famotidine [Pepcid] 20 mg tablet 20 mg PO DAILY Qty: 90 1RF Metamucil 3.4 gram/5.4 gram powder 1 tbsp PO BID Qty: 660 2RF Rx Instructions: mix into at least 8 oz of water or juice before administering nortriptyline 25 mg capsule 25 mg PO .at bedtime Qty: 30 2RF prednisone 10 mg tablet 10 mg PO DAILY Qty: 7 0RF venlafaxine [Effexor XR] 75 mg capsule,extended release 24hr 75 mg PO DAILY Qty: 30 2RF xheuacnaxn-zpmkxiflxvbut-ohuy [Esgic] 50-325-40 mg tablet 1 tab PO Q6H PRN (Reason: pain) Qty: 10 0RF sumatriptan succinate [Imitrex] 25 mg tablet See Rx Instructions PO .COMPLEX Qty: 14 3RF Rx Instructions: take 1 tab at onset of headache; if no relief may repeat 1 tab after at least 2 hrs; max = 3 tabs/24 hr PO Discharge Orders: Discharge ED (Routine); Ordered 10/12/21 Ordered By: Richard Paz Referrals: Uma León MD [Primary Care Provider] - Discharge Diet: Usual diet Discharge Activity: Increase activity as tolerated Patient Instructions: Dehydration (ED) Activity Restrictions/Additional Instructions: Home and rest. Drink plenty of fluids. Activity as tolerated. Follow-up with primary care for further evaluation and treatment. Return to ER for new concerns. 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
[2021-10-12] MEDS: sodium chloride 0.9% 1,000 ML 999 ML IV (00:29)
[2021-10-12] MEDS: ketorolac 30 mg/mL INJ 15 MG IVP (00:30)
[2021-10-12 00:31] VITALS: BP 102/68; BP 104/59; BP 111/72; PULSE 105; PULSE 82; PULSE 96
[2021-10-12] MEDS: metoclopramide 5 mg/mL SDV 2 mL IVP (00:49)
[2021-10-12 00:57] LABS: Basophils % 0.3 %; Eosinophils # 0.1 10^3/uL (0.0-0.8); Eosinophils % 0.8 %; Hematocrit 40.9 % (37.0-47.0); Hemoglobin 14.1 g/dL (11.5-15.3); Lymphocytes # 1.7 10^3/uL (0.8-4.8); Lymphocytes % 12.2 %; Mean Corpuscular HGB Conc 34.5 g/dL (30.0-36.0); Mean Corpuscular Hemoglobin 30.9 pg (28.0-34.0); Mean Corpuscular Volume 89.7 fl (81-99); Mean Platelet Volume 9.9 fL (7.4-10.4); Monocytes % 6.9 %; Neutrophils # 11.25 10^3/uL (1.8-7.7); Neutrophils % 79.4 %; Nucleated Red Blood Cells % 0 %; Platelet Count 229 10^3/cmm (130-400); Red Blood Count 4.56 10^6/uL (4.1-5.3); Red Cell Distribution Width 13.4 % (12.1-15.1); White Blood Count 14.2 10^3/uL (4.0-10.0)
[2021-10-12 00:58] LABS: Add Urine Microscopic? NO; Charge for UA Resulting for Rev
[2021-10-12 01:00] LABS: Bilirubin Urine Neg (Negative); Blood Urine Neg (Negative); Glucose Urine UA Norm (Normal); Ketones Urine Negative (Negative); Leukocyte Esterase Urine Negative (Negative); Nitrate Urine Negative (Negative); Protein Urine Neg (Negative); Specific Gravity, Urine 1.015 (1.005-1.030); Urine Appearance Clear (CLEAR); Urine Color Yellow (Yellow); Urobilinogen Urine Norm (Negative); pH Urine 5 (5-7)
[2021-10-12 01:11] LABS: HCG, Serum Qual Negative (Negative)
[2021-10-12 01:18] LABS: Alanine Aminotransferase 19 U/L (0-33); Albumin Level 4.1 g/dL (3.5-5.2); Alkaline Phosphatase 88 IU/L (35-105); Anion Gap 14.3 (5-19); Aspartate Amino Transferase 19 U/L (0-32); Blood Urea Nitrogen 9 mg/dL (6-20); Calcium 8.7 mg/dL (8.5-10.5); Carbon Dioxide 24 mmol/L (22-29); Chloride 100 mmol/L (98-107); Globulin 2.6 g/dL (1.3-4.6); Glomerular Filtration Rate 114.4 mL/min (90-130); Glucose 92 mg/dL (65-115); Osmolality Calculated 278 mOsm/kg (285-295); Potassium 3.3 mmol/L (3.5-5.1); Sodium 135 mmol/L (136-145); Total Bilirubin 0.4 mg/dL (0.15-1.2); Total Protein 6.7 g/dL (6.6-8.7)
[2021-10-12 01:22] VITALS: BP 104/62; PULSE 82; RESP 17; O2SAT 99
[2021-10-12] MEDS: potassium chloride ER 20 mEq Tablet PO (01:32)
[2021-10-12 01:54] VITALS: BP 101/67; PULSE 78; RESP 16; O2SAT 96
--- NOTE | 2021-10-12 03:38 | ECG_ITS ---
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 Measurements Intervals [place] Rate: 80 P: 79 ND: 147 QRS: 69 QRSD: 80 T: 53 QT: 373 QTc: 433 Interpretive Statements SINUS RHYTHM WITH SINUS ARRHYTHMIA LEFT ATRIAL ENLARGEMENT [-0.15mV P-WAVE IN V1/V2] POSSIBLE RIGHT VENTRICULAR CONDUCTION DELAY [RSR (QR) IN V1/V2] No previous ECG available for comparison Electronically Signed On 10-12-2021 17:03:01 CDT by Aquilino Burger M.D. [id number] f
== END 2021-10-12 01:55 | disposition home or self-care (01) ==
PROVIDERS: Emergency Provider Nurse Practitioner Family; PCP Family Medicine
DX: R55 Syncope and collapse (principal); E86.0 Dehydration; F17.210 Nicotine dependence, cigarettes, uncomplicated; J44.9 Chronic obstructive pulmonary disease, unspecified
CPT/HCPCS: 80053; 81003; 84703; 85025; 93005; 96361; 96374; 96375; 99284; J1885; J2765; J7030

== ENCOUNTER → 2022-01-17 14:32 | Outpatient (BNVA) | payer MEDICAID, SELFPAY ==
[2020-02-01 11:37] VITALS: BP 100/59; BMI 19.3
== END ==
PROVIDERS: PCP Family Medicine; Visit Provider Nurse Practitioner Family
DX: M77.12 Lateral epicondylitis, left elbow (principal)
CPT/HCPCS: 73080

== ENCOUNTER → 2022-03-04 14:05 | Outpatient (BNVA) | payer MEDICAID, SELFPAY ==
[2020-02-01 11:37] VITALS: BP 100/59; BMI 19.3
== END ==
PROVIDERS: PCP Family Medicine; Visit Provider Nurse Practitioner
DX: H53.9 Unspecified visual disturbance (principal); F33.1 Major depressive disorder, recurrent, moderate; G43.711 Chronic migraine without aura, intractable, with status migrainosus; M26.629 Arthralgia of temporomandibular joint, unspecified side; K21.9 Gastro-esophageal reflux disease without esophagitis; F41.9 Anxiety disorder, unspecified; L50.9 Urticaria, unspecified; M25.522 Pain in left elbow
CPT/HCPCS: 80053; 84443; 85025

== ENCOUNTER 2022-04-11 08:23 | Outpatient (CLI) | payer MEDICAID, SELFPAY ==
[2022-03-11 13:29] VITALS: BP 100/59; BMI 19.3
--- NOTE | 2022-04-11 08:45 | MR_ITS ---
WS: [id number] MRI HEAD WITHOUT CONTRAST TECHNIQUE: Sagittal T1, T2 axial, T2 axial FLAIR, axial and coronal T1 images, axial susceptibility w eighted imaging, axial diffusion weighted images, and coronal T2 images were obtained. CLINICAL INFORMATION: G43.711 - Chronic migraine without aura, intractable, wit... COMPARISON: MRI 2018 FINDINGS: No evidence of restricted diffusion to suggest acute ischemia. Ventricular system and basal cisterns are patent. A few tiny foci of T2 hyperintensity in the subcortical and periventricular white matter are unchanged since 2018. This is nonspecific but can be seen with migraine headaches. Normal posteri or fossa. Normal vascular flow voids at the skull base. No extra-axial fluid collections. No evidence of mass or mass effect. Normal posterior fossa. Normal cerebellar tonsils. No evidence of Chiari malformation. No hemosiderin on susceptibly weighted images. Normal optic chiasm and pituitary infundibulum. Temporal lobes and h ippocampal formations are normal in appearance. Retention cyst left maxillary sinus measuring 10 mm decrease in size compared to previous. Incidenta l benign venous angioma right temporal lobe better seen on the prior MRI with gadolinium. Cavernous s inuses are normal. Normal Meckel's cave. MR/MR head wo con* [id number] IMPRESSION: 1. No significant interval changes since 2018. 2. No evidence of restricted diffusion to suggest acute ischemia. 3. A few tiny foci of T2 hyperintensity in the subcortical and periventricular white matter unchanged but can be seen with migraine headaches. 4. Incidental benign venous angioma RIGHT temporal lobe better seen on the efrain or MRI with gadolinium. 5. No other suspicious findings.
== END 2022-04-11 08:24 | disposition home or self-care (01) ==
LOC: RAD 08:24
PROVIDERS: PCP Nurse Practitioner; Visit Provider Nurse Practitioner
DX: G43.711 Chronic migraine without aura, intractable, with status migrainosus (principal); H53.9 Unspecified visual disturbance
CPT/HCPCS: 70551

== ENCOUNTER → 2022-11-04 16:10 | Outpatient (BNVA) | payer MEDICAID, SELFPAY ==
[2022-03-11 13:29] VITALS: BP 100/59; BMI 19.3
== END ==
PROVIDERS: PCP Nurse Practitioner; Visit Provider Nurse Practitioner
DX: Z12.4 Encounter for screening for malignant neoplasm of cervix (principal)
CPT/HCPCS: 88175

== ENCOUNTER 2022-11-11 11:39 | Emergency (ER) | payer MEDICAID, SELFPAY ==
[2022-03-11 13:29] VITALS: BP 100/59; BMI 19.3
--- NOTE | 2022-11-11 11:44 | CT_ITS ---
WS: [id number] CT ABDOMEN AND PELVIS NONCONTRAST HISTORY: right flank pain TECHNIQUE: Imaging performed through the abdomen and pelvis. Coronal and sagittal reformats are submi tted. All CT scans at [facility] use at least one of these dose optimization techniques: auto mated exposure control; mA and/or kV adjustment per patient size (includes targeted exams where dose is matched to clinical indication); or iterative reconstruction. DLP: 291.25 mGy.cm COMPARISON: 02/27/2016 Lower thorax: Lung bases are clear. Visualized heart is normal. No hiatal hernia. Liver: Normal size liver. No mass or bile duct dilatation. Gallbladder: Normal gallbladder. No pericholecystic fluid or cholelithiasis. No gallbladder wall thic kening. Pancreas: Very poorly visualized without IV and oral contrast. No abnormality. Spleen: Normal. Adrenal glands: Normal. No mass. Right kidney: Normal size kidney with no mass or hydronephrosis. Left kidney: Normal size kidney. 1.3 cm lower pole low-attenuation lesion is probably a cyst. No obst ruction. Aorta: Normal abdominal aorta, no aneurysm or atherosclerosis. Abdominal lymph nodes or free air identified. Small lymph nodes would be easily obscured without cont rast. GI tract: Normal noncontrast imaging of the stomach, small bowel and colon. No obstruction or wall th ickening. The appendix is not identified with certainty. There are no inflammatory changes in the RIG HT lower quadrant. Abdominal wall: Negative. No hernia. Pelvis: RIGHT ovarian cyst measures 3.3 x 3.3 cm. Very tiny amount of free fluid in the pelvis. Small follicle LEFT ovary. Osseous structures: Unremarkable. CT/CT abdomen pelvis wo con [id number] IMPRESSION: 1. RIGHT ovarian cyst 3.3 x 3.3 cm with a small amount of free fluid. 2. The appendix is not identified with certainty. No inflammatory changes in t he RIGHT lower quadrant. 3. No renal obstruction.
[2022-11-11 11:56] VITALS: BP 106/57; PULSE 69; TEMP 36.7; O2SAT 100; BMI 15.7
--- NOTE | 2022-11-11 12:00 | ED_ITS ---
HPI - Abdominal Pain General: Chief Complaint: Abdominal Pain Stated Complaint: rt flank pain Time Seen by Provider: 11/11/22 11:42 History of Present Illness: Patient presents to the ER with complaints of right flank pain since waking up about 9:00 this morning. Patient did not have this pain when she went to bed last night. Patient has had this pain before on her left side but never her right side. Patient has a history of ovarian cyst that ruptured. Patient does not have a history of kidney stones. However she does admit to drinking a large amount of Mountain Dew and sweet tea. Patient describes his pain as sharp and stabbing in nature, pain is always there but gets suddenly worse and then resolves. Patient said no changes in bowel or bladder. Patient did take some Motrin prior to arrival and it did seem to help. Patient has not had any fever or chills. Review of Systems General: Reports: 10 or more systems reviewed and unremarkable except in HPI and below PFSH ED PFSH: Medical History Chronic major depressive disorder COPD (chronic obstructive pulmonary disease) /Asthma-----> diagnosed as a child and has never been hospitalized or intubated for asthma. Does have an albuterol inhaler which she uses once or twice a month. Think she has COPD as well. Family history of lung cancer Fibromyalgia Diagnosed in 2014 GERD (gastroesophageal reflux disease) Symptoms controlled with omeprazole Intractable chronic migraine without aura and with status migrainosus PTSD (post-traumatic stress disorder) Surgical History History of laparoscopy (02/03/19) 02/03/2019---diagnostic-- Albino for ovarian cyst and pelvic pain--- normal pelvic anatomy noted and ovarian cyst had resolved. No specimens obtained. Operative report has been scanned. S/P tubal ligation 05/25/20---Laparoscopic bilateral total salpingectomy for sterilization. Performed by Dr. Carty at [facility]. -Pathology showed bilateral fallopian tubes-benign Status post colonoscopy (08/31/20) Family History Grandmother Diabetes maternal Father Aneurysm of the brain, at age 32 Son Seizure disorder Family/Other Seizure disorder paternal uncle Denies family history of Colon cancer Ovarian cancer Heart disease Hyperlipidemia Breast cancer Anesthesia complication Bleeding disorder Hypertension Uterine cancer Thyroid condition Stroke Social History Smoking and tobacco status: never smoked Second hand smoke exposure: Yes Smoking risk assessment/counseling performed?: Yes Alcohol intake: unknown Desire information about alcohol rehabilitation?: No Counseling given: No Substance/Drug Use: unknown Desire information about substance/drug rehabilitation?: No Counseling given: No Adopted: No Caregiver/support person: No Lives independently: Yes Household members: children Marital status: service: No Current occupational status: unemployed Do you think of yourself as: Straight/Heterosexual Current gender identity: Female Special sonja needs: No Agree to transfusion: Yes Physical Exam Const: COMMON NORMALS: no acute distress, average body habitus, patient oriented x3, no limitations, healthy appearing, alert and well nourished HENMT: COMMON NORMALS: normocephalic, atraumatic, hearing grossly normal bilaterally, external ears normal, Normal external nose present and moist oral mucous membranes HEAD & SCALP: normocephalic and atraumatic NOSE: Normal external nose present EXTERNAL EAR: Yes external ears normal Eye: COMMON NORMALS: Equal, round and reactive pupils present, EOMs intact dale aterally, conjunctivae normal and no scleral icterus CONJUNCTIVA: Yes con junctivae normal PUPIL: Yes Equal, round and reactive pupils present Neck/C-Spine: COMMON NORMALS: full ROM, no lymphadenopathy, supple, no meningeal signs, no JVD and Thyroid normal THYROID: Thyroid normal Lymph: LYMPHATIC: no lymphadenopathy noted Chest: COMMONS NORMALS: normal inspection of the chest and normal palpation of entire chest wall Resp: COMMON NORMALS: normal respiratory effort, No retractions, No use of accessory muscles and clear to auscultation bilaterally AUSCULTATION: clear to auscultation bilaterally Cardio: COMMON NORMALS: no JVD, regular rate, regular rhythm, S1 normal heart sound present, S2 normal heart sound present, No gallops present (Cardio), No clicks present (Cardio), No murmurs present (Cardio) and No rub (Cardio) RATE: regular rate RHYTHM: regular rhythm HEART SOUNDS: S1 normal heart sound present and S2 normal heart sound present GI: COMMON NORMALS: Normal to inspection, nondistended, normoactive bowel sounds present, Soft to palpation, non-tender, No hepatosplenomegaly present and no masses PALPATION: Yes Soft to palpation and Yes No hepatosplenomegaly present : OTHER: Right flank pain tender to palpation also right thoracolumbar paraspinal musculature spastic and tender to palpate. Neuro: COMMON NORMALS: patient oriented x3 SENSORIUM/ORIENTATION: Yes alert MENINGEAL SIGNS: Yes no meningeal signs Course Vital Signs: Vital signs: Vital Signs Temperature 98.1 F 11/11/22 11:56 Pulse Rate 69 11/11/22 11:56 Blood Pressure 106/57 11/11/22 11:56 Pulse Oximetry 100 11/11/22 11:56 Oxygen Delivery Me thod Room Air 11/11/22 11:56 MDM - Abdominal Pain Medical Decision Making Patient presents to the ER with right flank pain and right lumbar paraspinal pain. This pain started this morning. Patient was evaluated lab work and imaging was obtained. Lab work was benign except for hematuria. Imaging showed patient has a right ovarian cyst with a small amount of free fluid, no renal obstruction noted. Physical exam showed patient was tender in the right lumbar paraspinal musculature. It is thought that this is probably more low back pain along with an ovarian cyst than anything. Patient will be given mild pain medicines and muscle relaxers to send home. Patient is to follow-up with her PCP in approximately 1 week. Differential Diagnosis Likely calculus of kidney (Thoracolumbar back pain); Unlikely abdominal pain, acute appendicitis, constipation, diverticulitis, endometriosis, gastroenteritis, pancreatitis or small bowel obstruction Medical Records I reviewed the patient's medical records. Lab Data I reviewed the patient's lab results. 11/11/22 12:04 11/11/22 12:04 Labs/Radiology: Radiology Impressions Abdomen/Pelvis CT 11/11/22 11:44 IMPRESSION: 1. RIGHT ovarian cyst 3.3 x 3.3 cm with a small amount of free fluid. 2. The appendix is not identified with certainty. No inflammatory changes in the RIGHT lower quadrant. 3. No renal obstruction. Laboratory Results WBC 6.1 10^3/uL (4.0-10.0) 11/11/22 12:04 RBC 4.49 10^6/uL (4.1-5.3) 11/11/22 12:04 Hgb 13.7 g/dL (11.5-15.3) 11/11/22 12:04 Hct 42.6 % (37.0-47.0) 11/11/22 12:04 MCV 94.9 fl (81-99) 11/11/22 12:04 MCH 30.5 pg (28.0-34.0) 11/11/22 12:04 MCHC 32.2 g/dL (30.0-36.0) 11/11/22 12:04 RDW 14.2 % (12.1-15.1) 11/11/22 12:04 Plt Count 186 10^3/cmm (130-400) 11/11/22 12:04 MPV 9.8 fL (7.4-10.4) 11/11/22 12:04 Neut % (Auto) 70.7 % 11/11/22 12:04 Lymph % (Auto) 18.8 % 11/11/22 12:04 [place] % (Auto) 7.0 % 11/11/22 12:04 Eos % (Auto) 2.8 % 11/11/22 12:04 Baso % (Auto) 0.5 % 11/11/22 12:04 Neut # (Auto) 4.32 10^3/uL (1.8-7.7) 11/11/22 12:04 Lymph # (Auto) 1.2 10^3/uL (0.8-4.8) 11/11/22 12:04 [place] # (Auto) 0.4 10^3/uL (0.2-0.9) 11/11/22 12:04 Eos # (Auto) 0.2 10^3/uL (0.0-0.8) 11/11/22 12:04 Baso # (Auto) 0.0 10^3/uL (0.0-0.1) 11/11/22 12:04 Nucleated RBC % (auto) 0 % 11/11/22 12:04 Nucleated RBCs # 0.0 /100WBC 11/11/22 12:04 Sodium 138 mmol/L (136-145) 11/11/22 12:04 Potassium 4.0 mmol/L (3.5-5.1) 11/11/22 12:04 Chloride 105 mmol/L (98-107) 11/11/22 12:04 Carbon Dioxide 24 mmol/L (22-29) 11/11/22 12:04 Anion Gap 13.0 (5-19) 11/11/22 12:04 BUN 10 mg/dL (6-20) 11/11/22 12:04 Creatinine 0.6 mg/dL (0.5-0.9) 11/11/22 12:04 GFR Calculation 113.8 mL/min (90-130) 11/11/22 12:04 Glucose 76 mg/dL (65-115) 11/11/22 12:04 Calculated Osmolality 284 mOsm/kg (285-295) L 11/11/22 12:04 Calcium 8.7 mg/dL (8.5-10.5) 11/11/22 12:04 Total Bilirubin 0.4 mg/dL (0.15-1.2) 11/11/22 12:04 AST 15 U/L (0-32) 11/11/22 12:04 ALT 10 U/L (0-33) 11/11/22 12:04 Alkaline Phosphatase 82 U/L (35-105) 11/11/22 12:04 Total Protein 6.0 g/dL (6.6-8.7) L 11/11/22 12:04 Albumin 3.8 g/dL (3.5-5.2) 11/11/22 12:04 Globulin 2.2 g/dL (1.3-4.6) 11/11/22 12:04 Urine Color Yellow (Yellow) 11/11/22 13:10 Urine Appearance Clear (CLEAR) 11/11/22 13:10 Urine pH 5 (5-7) 11/11/22 13:10 Ur Specific [place] 1.020 (1.005-1.030) 11/11/22 13:10 Urine Protein Neg (Negative) 11/11/22 13:10 Urine Glucose (UA) Norm (Normal) 11/11/22 13:10 Urine Ketones Negative (Negative) 11/11/22 13:10 Urine Blood 2+ (Negative) H 11/11/22 13:10 Urine Nitrate Negative (Negative) 11/11/22 13:10 Urine Bilirubin Neg (Negative) 11/11/22 13:10 Urine Urobilinogen Norm mg/dL (Negative) 11/11/22 13:10 Ur Leukocyte Esterase Negative (Negative) 11/11/22 13:10 Urine RBC 5-10 /hpf (0-2) H 11/11/22 13:10 Urine WBC 0-4 /hpf (0-5) H 11/11/22 13:10 Ur Squamous Epith Cells 0-4 /hpf (0-5) H 11/11/22 13:10 Amorphous Sediment Not Reportable 11/11/22 13:10 Urine Bacteria Trace /hpf (NONE) 11/11/22 13:10 Urine Mucus 2+ /hpf 11/11/22 13:10 Discharge Plan Discharge Patient Disposition: Home Clinical Impression: Cyst of right ovary Acute right-sided low back pain Qualifiers: Sciatica presence: without sciatica Qualified Code(s): M54.50 - Low back pain, unspecified Condition: Stable Prescriptions: New meloxicam 7.5 mg tablet 7.5 mg PO BID PRN (Reason: pain ) Qty: 14 0RF No Action fluticasone propionate [Flonase Allergy Relief] 50 mcg/actuation spray,suspension 1 spray intranasal DAILY Qty: 16 5RF Rx Instructions: administer into each nostril not started as of 11/11/22 per pt promethazine-DM 6.25-15 mg/5 mL syrup 5 - 10 ml PO Q6H PRN (Reason: cough) Qty: 240 0RF albuterol sulfate 90 mcg/actuation HFA aerosol inhaler 2 puff inhalation Q6H PRN (Reason: shortness of breath or wheezing) Qty: 8.5 5RF cetirizine 10 mg tablet 10 mg PO DAILY Qty: 90 1RF Rx Instructions: not started as of 11/11/22 per pt omeprazole 20 mg tablet,delayed release (DR/EC) 20 mg PO DAILY Qty: 30 2RF Rx Instructions: not started as of 11/11/22 per pt Spiriva with HandiHaler 18 mcg capsule, w/inhalation device 1 cap inhalation DAILY Qty: 30 5RF Rx Instructions: puncture 1 cap using device; one dose = 2 inhalations venlafaxine [Effexor XR] 75 mg capsule,extended release 24hr 75 mg PO DAILY Qty: 30 2RF Rx Instructions: not started as of 11/11/22 per pt ibuprofen 200 mg Tablet 800 mg PO Q6H PRN (Reason: Pain) cyclobenzaprine 10 mg tablet 10 mg PO BEDTIME Rx Instructions: not started as of 11/11/22 per pt nortriptyline 50 mg capsule 50 mg PO BEDTIME Rx Instructions: not started as of 11/11/22 per pt Discharge Orders: Discharge ED (Routine); Ordered 11/11/22 Ordered By: Miguel Rivera Referrals: Marcellus Hernandez, [employer]OVING FRAME TENDER-C [Primary Care Provider] - 1 week Patient Instructions: Ovarian Cyst (ED), Acute Low Back Pain (ED) Activity Restrictions/Additional Instructions: Please take all medicines as directed including the pain medicine you are given as a prescription ER and a muscle relaxer you have at home. Please follow-up with family practice in approximately 1 week or sooner as needed. Please return to the ER for further evaluation and treatment if your pain worsens or becomes uncontrollable. Coding Level of Care Code ED Electrician Manager for Robin Hernandez
[2022-11-11 12:15] LABS: Basophils % 0.5 %; Eosinophils # 0.2 10^3/uL (0.0-0.8); Eosinophils % 2.8 %; Hematocrit 42.6 % (37.0-47.0); Hemoglobin 13.7 g/dL (11.5-15.3); Lymphocytes # 1.2 10^3/uL (0.8-4.8); Lymphocytes % 18.8 %; Mean Corpuscular HGB Conc 32.2 g/dL (30.0-36.0); Mean Corpuscular Hemoglobin 30.5 pg (28.0-34.0); Mean Corpuscular Volume 94.9 fl (81-99); Mean Platelet Volume 9.8 fL (7.4-10.4); Monocytes # 0.4 10^3/uL (0.2-0.9); Neutrophils # 4.32 10^3/uL (1.8-7.7); Neutrophils % 70.7 %; Nucleated Red Blood Cells % 0 %; Platelet Count 186 10^3/cmm (130-400); Red Blood Count 4.49 10^6/uL (4.1-5.3); Red Cell Distribution Width 14.2 % (12.1-15.1); White Blood Count 6.1 10^3/uL (4.0-10.0)
[2022-11-11 12:36] LABS: Alanine Aminotransferase 10 U/L (0-33); Albumin Level 3.8 g/dL (3.5-5.2); Alkaline Phosphatase 82 U/L (35-105); Aspartate Amino Transferase 15 U/L (0-32); Blood Urea Nitrogen 10 mg/dL (6-20); Calcium 8.7 mg/dL (8.5-10.5); Carbon Dioxide 24 mmol/L (22-29); Chloride 105 mmol/L (98-107); Globulin 2.2 g/dL (1.3-4.6); Glomerular Filtration Rate 113.8 mL/min (90-130); Glucose 76 mg/dL (65-115); Osmolality Calculated 284 mOsm/kg (285-295); Sodium 138 mmol/L (136-145); Total Bilirubin 0.4 mg/dL (0.15-1.2)
[2022-11-11 13:32] LABS: Add Urine Culture? No; Add Urine Microscopic? YES; Bacteria Urine TRACE /hpf; Bilirubin Urine Neg (Negative); Blood Urine 2+ (Negative); Glucose Urine UA Norm (Normal); Ketones Urine Negative (Negative); Leukocyte Esterase Urine Negative (Negative); Mucus Urine 2+ /hpf; Nitrate Urine Negative (Negative); Protein Urine Neg (Negative); Squamous Epithelial Cell Urine 0-4 /hpf (0-5); Urine Appearance Clear (CLEAR); Urine Color Yellow (Yellow); Urobilinogen Urine Norm (Negative); WBC Urine 0-4 /hpf (0-5); pH Urine 5 (5-7)
--- NOTE | 2022-11-11 13:45 | PC.PHAR ---
pt states she hasnt started any of her medications yet-pt states she didnt get the esgic filled states not covered by insurance-
== END 2022-11-11 14:02 | disposition home or self-care (01) ==
PROVIDERS: Emergency Provider Emergency Medicine; PCP Nurse Practitioner
DX: N83.201 Unspecified ovarian cyst, right side (principal); M54.50 Low back pain, unspecified; J44.9 Chronic obstructive pulmonary disease, unspecified
CPT/HCPCS: 36415; 74176; 80053; 81001; 85025; 99284

== ENCOUNTER 2022-12-02 19:42 | Emergency (ER) | payer MEDICAID, SELFPAY ==
[2022-03-11 13:29] VITALS: BP 100/59; BMI 19.3
[2022-12-02 19:47] VITALS: BP 101/62; PULSE 83; RESP 18; TEMP 36.7; O2SAT 100; BMI 16.4
--- NOTE | 2022-12-02 19:50 | XRR_ITS ---
PROCEDURE INFORMATION: Exam: XR Chest Exam date and time: 12/02/2022 7:57 PM Age: 36 years old Clinical indication: Shortness of breath; Additional info: SOB TECHNIQUE: Imaging protocol: Radiologic exam of the chest. Views: 1 view. COMPARISON: CR XR chest 1V portable [id number] 03/23/2020 12:51 PM FINDINGS: Lungs: Hyperinflated lungs. No consolidation. Pleural spaces: Unremarkable. No pleural effusion. No pneumothorax. Heart/Mediastinum: Unremarkable. No cardiomegaly. Bones/joints: Unremarkable. XR/XR chest 1V portable [id number] IMPRESSION: No acute findings.
--- NOTE | 2022-12-02 20:30 | ECG_ITS ---
[facility] Test Date: 2022-12-02 Pat Name: Shannon Acosta Department: Room: Gender: Female Clinical Services Specialist: : 1985 Requested By: Toyin Neri Order Number: [id number] Blancas MD: Franklin Pena M.D. Measurements Intervals [place] Rate: 67 P: 74 IN: 140 QRS: 68 QRSD: 79 T: 59 QT: 391 QTc: 414 Interpretive Statements SINUS RHYTHM POSSIBLE LEFT ATRIAL ENLARGEMENT [-0.1mV P-WAVE IN V1/V2] POSSIBLE RIGHT VENTRICULAR CONDUCTION DELAY [RSR (QR) IN V1/V2] Compared to ECG 10/12/2021 00:13:34 Sinus arrhythmia no longer present Electronically Signed On 12-03-2022 20:21:35 CDT by Franklin Pena M.D. [id number]
--- NOTE | 2022-12-02 20:34 | ED_ITS ---
HPI - SOB/Dyspnea General: Chief Complaint: Shortness of Breath/Dyspnea Stated Complaint: sob Time Seen by Provider: 12/02/22 20:23 Source: patient Mode of arrival: ambulatory Limitations: no limitations History of Present Illness: HPI Narrative: 36-year-old female with long history of smoking she does have a history of COPD as well states she is chronically short of breath and has a cough states that cough is worsening slightly and had some more increased short of breath last 2 days since changing brands of cigarettes denies any fever denies any vomiting or diarrhea denies any worsening proving factors. States she also is very sharp left-sided pains worse with palpation with her cough Associated symptoms: Reports chest pain; Deny abdominal pain, fever(s), nausea or vomiting Review of Systems Const: Denies: fever(s), chills, body aches or change in appetite Eyes: Denies: blurry vision or eye discomfort ENMT: Denies: throat pain or dental pain Card: Reports: chest pain Resp: Reports: dyspnea and non-productive cough GI: Denies: abdominal pain, nausea, vomiting or diarrhea : Denies: dysuria Musc: Denies: neck pain or back pain Skin/Breast: Denies: rash Neuro: Denies: headache(s) PFSH ED PFSH: Medical History Chronic major depressive disorder COPD (chronic obstructive pulmonary disease) /Asthma-----> diagnosed as a child and has never been hospitalized or intubated for asthma. Does have an albuterol inhaler which she uses once or twice a month. Think she has COPD as well. Family history of lung cancer Fibromyalgia Diagnosed in 2014 GERD (gastroesophageal reflux disease) Symptoms controlled with omeprazole Intractable chronic migraine without aura and with status migrainosus PTSD (post-traumatic stress disorder) Surgical History History of laparoscopy (02/03/19) 02/03/2019---diagnostic-- Albino for ovarian cyst and pelvic pain--- normal pelvic anatomy noted and ovarian cyst had resolved. No specimens obtained. Operative report has been scanned. S/P tubal ligation 05/25/20---Laparoscopic bilateral total salpingectomy for sterilization. Performed by Dr. Carty at [facility]. -Pathology showed bilateral fallopian tubes-benign Status post colonoscopy (08/31/20) Family History Grandmother Diabetes maternal Father Aneurysm of the brain, at age 32 Son Seizure disorder Family/Other Seizure disorder paternal uncle Denies family history of Colon cancer Ovarian cancer Heart disease Hyperlipidemia Breast cancer Anesthesia complication Bleeding disorder Hypertension Uterine cancer Thyroid condition Stroke Social History Smoking and tobacco status: never smoked Second hand smoke exposure: Yes Smoking risk assessment/counseling performed?: Yes Alcohol intake: unknown Desire information about alcohol rehabilitation?: No Counseling given: No Substance/Drug Use: unknown Desire information about substance/drug rehabilitation?: No Counseling given: No Adopted: No Caregiver/support person: No Lives independently: Yes Household members: children Marital status: service: No Current occupational status: unemployed Do you think of yourself as: Straight/Heterosexual Current gender identity: Female Special sonja needs: No Agree to transfusion: Yes Physical Exam Const: COMMON NORMALS: no acute distress, patient oriented x3 and healthy appearing HENMT: COMMON NORMALS: normocephalic and atraumatic HEAD & SCALP: normocephalic and atraumatic Eye: COMMON NORMALS: Equal, round and reactive pupils present and EOMs intact bilaterally PUPIL: Yes Equal, round and reactive pupils present Neck/C-Spine: COMMON NORMALS: full ROM and supple Chest: COMMONS NORMALS: normal inspection of the chest OTHER: Point tender over left chest Resp: COMMON NORMALS: normal respiratory effort, No retractions, No use of accessory muscles and clear to auscultation bilaterally AUSCULTATION: clear to auscultation bilaterally Cardio: COMMON NORMALS: regular rate, regular rhythm and No murmurs present (Cardio) RATE: regular rate RHYTHM: regular rhythm GI: COMMON NORMALS: Normal to inspection, nondistended, normoactive bowel sounds present, Soft to palpation, non-tender and no masses PALPATION: Yes Soft to palpation Extremity: COMMON NORMALS: normal to inspection and full ROM Neuro: COMMON NORMALS: patient oriented x3, moves all extremities and no focal motor deficits Psych: COMMON NORMALS: mental status grossly normal, Normal thought process present and cooperative THOUGHT PROCESS: Normal thought process present Skin: COMMON NORMALS: no rashes or lesions noted and no wounds GENERAL SKIN EXAM: no rashes or lesions noted Course Vital Signs: Vital signs: Vital Signs Temperature 98.1 F 12/02/22 19:47 Pulse Rate 77 12/02/22 20:48 Respiratory Rate 21 H 12/02/22 20:48 Blood Pressure 101/62 12/02/22 19:47 Pulse Oximetry 100 12/02/22 20:48 Oxygen Delivery Me thod Room Air 12/02/22 20:48 MDM - SOB/Dyspnea Medical Decision Making Patient presents with left side chest pains likely muscular in nature from her chronic cough x-ray shows no pneumonia blood works normal she is well-appearing here we will place her on Naprosyn she is stable for discharge Medical Records I reviewed the patient's medical records. Lab Data I reviewed the patient's lab results. 12/02/22 20:50 12/02/22 20:50 Labs/Radiology: Radiology Impressions Chest X-Ray 12/02/22 19:50 IMPRESSION: No acute findings. Laboratory Results WBC 6.4 10^3/uL (4.0-10.0) 12/02/22 20:50 RBC 4.34 10^6/uL (4.1-5.3) 12/02/22 20:50 Hgb 13.5 g/dL (11.5-15.3) 12/02/22 20:50 Hct 41.5 % (37.0-47.0) 12/02/22 20:50 MCV 95.6 fl (81-99) 12/02/22 20:50 MCH 31.1 pg (28.0-34.0) 12/02/22 20:50 MCHC 32.5 g/dL (30.0-36.0) 12/02/22 20:50 RDW 14.5 % (12.1-15.1) 12/02/22 20:50 Plt Count 237 10^3/cmm (130-400) 12/02/22 20:50 MPV 9.6 fL (7.4-10.4) 12/02/22 20:50 Neut % (Auto) 58.0 % 12/02/22 20:50 Lymph % (Auto) 30.1 % 12/02/22 20:50 [place] % (Auto) 8.0 % 12/02/22 20:50 Eos % (Auto) 3.1 % 12/02/22 20:50 Baso % (Auto) 0.5 % 12/02/22 20:50 Neut # (Auto) 3.72 10^3/uL (1.8-7.7) 12/02/22 20:50 Lymph # (Auto) 1.9 10^3/uL (0.8-4.8) 12/02/22 20:50 [place] # (Auto) 0.5 10^3/uL (0.2-0.9) 12/02/22 20:50 Eos # (Auto) 0.2 10^3/uL (0.0-0.8) 12/02/22 20:50 Baso # (Auto) 0.0 10^3/uL (0.0-0.1) 12/02/22 20:50 Nucleated RBC % (auto) 0 % 12/02/22 20:50 Nucleated RBCs # 0.0 /100WBC 12/02/22 20:50 Sodium 142 mmol/L (136-145) 12/02/22 20:50 Potassium 3.8 mmol/L (3.5-5.1) 12/02/22 20:50 Chloride 108 mmol/L (98-107) H 12/02/22 20:50 Carbon Dioxide 26 mmol/L (22-29) 12/02/22 20:50 Anion Gap 11.8 (5-19) 12/02/22 20:50 BUN 13 mg/dL (6-20) 12/02/22 20:50 Creatinine 0.7 mg/dL (0.5-0.9) 12/02/22 20:50 GFR Calculation 95.2 mL/min (90-130) 12/02/22 20:50 Glucose 72 mg/dL (65-115) 12/02/22 20:50 Calculated Osmolality 293 mOsm/kg (285-295) 12/02/22 20:50 Calcium 9.2 mg/dL (8.5-10.5) 12/02/22 20:50 EKG Data EKG 1: I personally reviewed and interpreted this EKG as follows: EKG Interpretation Date: 12/02/22 EKG interpretation time: 20:30 Interpretation: nsr hr [address] or twave abnormalities qrs 79 qtc 407 Discharge Plan Discharge Patient Disposition: Home Clinical Impression: Chest wall pain, Cough Condition: Stable Prescriptions: New Naprosyn 500 mg tablet 500 mg PO BID PRN (Reason: pain) Qty: 20 0RF No Action fluticasone propionate [Flonase Allergy Relief] 50 mcg/actuation spray,suspension 1 spray intranasal DAILY Qty: 16 5RF Rx Instructions: administer into each nostril not started as of 11/11/22 per pt promethazine-DM 6.25-15 mg/5 mL syrup 5 - 10 ml PO Q6H PRN (Reason: cough) Qty: 240 0RF albuterol sulfate 90 mcg/actuation HFA aerosol inhaler 2 puff inhalation Q6H PRN (Reason: shortness of breath or wheezing) Qty: 8.5 5RF cetirizine 10 mg tablet 10 mg PO DAILY Qty: 90 1RF Rx Instructions: not started as of 11/11/22 per pt omeprazole 20 mg tablet,delayed release (DR/EC) 20 mg PO DAILY Qty: 30 2RF Rx Instructions: not started as of 11/11/22 per pt Spiriva with HandiHaler 18 mcg capsule, w/inhalation device 1 cap inhalation DAILY Qty: 30 5RF Rx Instructions: puncture 1 cap using device; one dose = 2 inhalations venlafaxine [Effexor XR] 75 mg capsule,extended release 24hr 75 mg PO DAILY Qty: 30 2RF Rx Instructions: not started as of 11/11/22 per pt rizatriptan [Maxalt] 10 mg tablet See Rx Instructions PO .COMPLEX Qty: 7 0RF Rx Instructions: take 1 tab at onset of headache; if no relief may repeat 1 tab after at least 2 hrs; max = 2 tabs/24 hr PO meloxicam 7.5 mg tablet 7.5 mg PO BID PRN (Reason: pain ) Qty: 14 0RF ibuprofen 200 mg Tablet 800 mg PO Q6H PRN (Reason: Pain) cyclobenzaprine 10 mg tablet 10 mg PO BEDTIME Rx Instructions: not started as of 11/11/22 per pt nortriptyline 50 mg capsule 50 mg PO BEDTIME Rx Instructions: not started as of 11/11/22 per pt Discharge Orders: Discharge ED (Routine); Ordered 12/02/22 Ordered By: Toyin Neri Referrals: Marcellus Hernandez, LABORER SYRUP MACHINE-C [Primary Care Provider] - 1-3 days Discharge Diet: Advance as tolerated Discharge Activity: Resume usual activity Patient Instructions: Chest Wall Pain (ED) Coding Level of Care Code ED Wig Dresser for Robin Hernandez
[2022-12-02] MEDS: albuterol 2.5 mg/3 mL Neb INHALATION (20:42)
[2022-12-02 20:44] VITALS: PULSE 72; RESP 21; O2SAT 100
[2022-12-02 20:48] VITALS: PULSE 77; RESP 21; O2SAT 100
[2022-12-02 21:00] VITALS: BP 92/52; PULSE 72; O2SAT 100
[2022-12-02] MEDS: dexamethasone 10 mg/mL INJ IVP (21:00)
[2022-12-02] MEDS: ketorolac 30 mg/mL INJ IVP (21:06)
[2022-12-02 21:08] LABS: Basophils % 0.5 %; Eosinophils # 0.2 10^3/uL (0.0-0.8); Eosinophils % 3.1 %; Hematocrit 41.5 % (37.0-47.0); Hemoglobin 13.5 g/dL (11.5-15.3); Lymphocytes # 1.9 10^3/uL (0.8-4.8); Lymphocytes % 30.1 %; Mean Corpuscular HGB Conc 32.5 g/dL (30.0-36.0); Mean Corpuscular Hemoglobin 31.1 pg (28.0-34.0); Mean Corpuscular Volume 95.6 fl (81-99); Mean Platelet Volume 9.6 fL (7.4-10.4); Monocytes # 0.5 10^3/uL (0.2-0.9); Neutrophils # 3.72 10^3/uL (1.8-7.7); Nucleated Red Blood Cells % 0 %; Platelet Count 237 10^3/cmm (130-400); Red Blood Count 4.34 10^6/uL (4.1-5.3); Red Cell Distribution Width 14.5 % (12.1-15.1); White Blood Count 6.4 10^3/uL (4.0-10.0)
[2022-12-02 21:23] LABS: Anion Gap 11.8 (5-19); Blood Urea Nitrogen 13 mg/dL (6-20); Calcium 9.2 mg/dL (8.5-10.5); Carbon Dioxide 26 mmol/L (22-29); Chloride 108 mmol/L (98-107); Glomerular Filtration Rate 95.2 mL/min (90-130); Glucose 72 mg/dL (65-115); Osmolality Calculated 293 mOsm/kg (285-295); Potassium 3.8 mmol/L (3.5-5.1); Sodium 142 mmol/L (136-145)
[2022-12-02 21:30] VITALS: BP 106/57; PULSE 82; RESP 22; O2SAT 99
[2022-12-02 22:14] VITALS: BP 100/50; PULSE 77; RESP 24; O2SAT 96
== END 2022-12-02 22:16 | disposition home or self-care (01) ==
PROVIDERS: Emergency Provider Emergency Medicine; PCP Nurse Practitioner
DX: R07.89 Other chest pain (principal); R05.9 Cough, unspecified; Z77.22 Contact with and (suspected) exposure to environmental tobacco smoke (acute) (chronic); J44.9 Chronic obstructive pulmonary disease, unspecified
CPT/HCPCS: 71045; 80048; 85025; 93005; 94640; 96374; 96375; 99285; J1100; J1885; J7613

== ENCOUNTER → 2023-01-27 12:40 | Outpatient (BNVA) | payer MEDICAID, SELFPAY ==
[2022-03-11 13:29] VITALS: BP 100/59; BMI 19.3
== END ==
PROVIDERS: PCP Nurse Practitioner; Visit Provider Nurse Practitioner
DX: Z87.42 Personal history of other diseases of the female genital tract
CPT/HCPCS: 88175

== ENCOUNTER → 2023-09-16 14:29 | Outpatient (BNVA) | payer MEDICAID, SELFPAY ==
[2023-02-10 13:40] VITALS: BP 100/59; BMI 19.3
== END ==
PROVIDERS: PCP Nurse Practitioner Family; Visit Provider Nurse Practitioner Family
DX: J02.9 Acute pharyngitis, unspecified (principal)
CPT/HCPCS: 87071; 87880

== ENCOUNTER → 2023-10-27 13:23 | Outpatient (BNVA) | payer MEDICAID, SELFPAY ==
[2023-09-18 09:37] VITALS: BP 100/59; BMI 19.3
== END ==
PROVIDERS: PCP Nurse Practitioner Family; Visit Provider Nurse Practitioner
DX: Z12.4 Encounter for screening for malignant neoplasm of cervix (principal)
CPT/HCPCS: 87624

== ENCOUNTER → 2024-02-06 15:03 | Outpatient (BNVA) | payer MEDICAID, SELFPAY ==
[2023-09-18 09:37] VITALS: BP 100/59; BMI 19.3
== END ==
PROVIDERS: PCP Nurse Practitioner Family; Visit Provider Nurse Practitioner
DX: J02.9 Acute pharyngitis, unspecified (principal)
CPT/HCPCS: 87880

== ENCOUNTER 2024-05-19 09:57 | Outpatient (CLI) | payer MEDICAID, SELFPAY ==
[2023-09-18 09:37] VITALS: BP 100/59; BMI 19.3
[2024-05-19 10:08] VITALS: PULSE 87; RESP 18; O2SAT 97
[2024-05-19] MEDS: albuterol 2.5 mg/3 mL Neb INHALATION (10:09)
== END 2024-05-19 09:58 | disposition home or self-care (01) ==
LOC: RT 09:58
PROVIDERS: PCP Nurse Practitioner; Visit Provider Nurse Practitioner
DX: J44.9 Chronic obstructive pulmonary disease, unspecified (principal)
CPT/HCPCS: 94060

== ENCOUNTER 2024-06-14 10:32 | Outpatient (CLI) | payer MEDICAID, SELFPAY ==
[2023-09-18 09:37] VITALS: BP 100/59; BMI 19.3
--- NOTE | 2024-06-14 10:30 | MM_ITS ---
WS: [id number] DIAGNOSTIC BILATERAL DIGITAL BREAST TOMOSYNTHESIS MAMMOGRAPHY WITH CAD Bilateral breast ultrasound, limited HISTORY: LEFT BREAST TENDERNESS COMPARISON: None available. TECHNIQUE: Bilateral craniocaudad, mediolateral oblique, and mediolateral views are submitted with tomosynthesis and SM. Computer aided detection utilized. Breast composition: The breasts are extremely dense, which lowers the sensitivity of mammography. RIGHT breast: Partially obscured equal density mass posterior to the RIGHT nipple and slightly towards 12:00 measures 9 x 9 mm. No abnormality towards the axillary tail in the area of pain. LEFT breast: Lobulated partially obscured high density mass in the lateral posterior LEFT breast measures 9 x 8 x 9 mm near 3-4 o'clock. No abnormality towards the axillary tail in the area of pain. Bilateral breast ultrasound, limited. RIGHT: Multiple cysts are identified. In the axillary tail at the area of pain there are a few cysts with septations. No solid mass. In the RIGHT breast at 12:00 there is a lobulated mass with septations and good through transmission corresponding to the mammographic abnormality measuring 1.2 x 1.2 x 0.8 cm. Additional smaller cysts and very dense breast tissue. LEFT breast: LEFT breast at 3:00 septated or 2 adjacent cysts measure 1.3 x 0.9 x 0.6 cm. Additional smaller cyst. No abnormality towards the axillary tail. MM/MM diag tomosynthesis [id number] IMPRESSION: BI-RADS: 2 - Benign FOLLOW UP: 1 Year Follow-up Numerous cysts within each breast. No suspicious masses.
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
== END 2024-06-14 10:33 | disposition home or self-care (01) ==
PROVIDERS: PCP Nurse Practitioner; Visit Provider Nurse Practitioner
DX: N64.4 Mastodynia (principal); R92.343 Mammographic extreme density, bilateral breasts; N63.15 Unspecified lump in the right breast, overlapping quadrants; N60.11 Diffuse cystic mastopathy of right breast; N63.25 Unspecified lump in the left breast, overlapping quadrants; N60.12 Diffuse cystic mastopathy of left breast
CPT/HCPCS: 76642; 77062; 77063; 77067; G0279

== ENCOUNTER → 2024-07-13 16:44 | Outpatient (BNVA) | payer MEDICAID, SELFPAY ==
[2023-09-18 09:37] VITALS: BP 100/59; BMI 19.3
== END ==
PROVIDERS: PCP Nurse Practitioner; Visit Provider Nurse Practitioner
DX: Z13.6 Encounter for screening for cardiovascular disorders (principal); E55.9 Vitamin D deficiency, unspecified
CPT/HCPCS: 80053; 80061; 81000; 82306; 85025

== ENCOUNTER → 2024-07-19 11:12 | Outpatient (BNVA) | payer MEDICAID, SELFPAY ==
[2023-09-18 09:37] VITALS: BP 100/59; BMI 19.3
== END ==
PROVIDERS: PCP Nurse Practitioner; Visit Provider Nurse Practitioner
DX: Z13.6 Encounter for screening for cardiovascular disorders (principal); E55.9 Vitamin D deficiency, unspecified
CPT/HCPCS: 80053; 80061; 82306; 85025

== ENCOUNTER → 2024-12-01 15:37 | Outpatient (BNVA) | payer MEDICAID, SELFPAY ==
[2023-09-18 09:37] VITALS: BP 100/59; BMI 19.3
== END ==
PROVIDERS: PCP Nurse Practitioner; Visit Provider Nurse Practitioner
DX: E55.9 Vitamin D deficiency, unspecified (principal); F41.9 Anxiety disorder, unspecified
CPT/HCPCS: 80053; 82306; 84443

== ENCOUNTER → 2025-01-18 12:24 | Outpatient (BNVA) | payer MEDICAID, SELFPAY ==
[2023-09-18 09:37] VITALS: BP 100/59; BMI 19.3
== END ==
PROVIDERS: PCP Nurse Practitioner; Visit Provider Emergency Medicine
DX: J44.9 Chronic obstructive pulmonary disease, unspecified (principal)
CPT/HCPCS: 71046

== ENCOUNTER 2025-03-03 21:05 | Emergency (ER) | payer MEDICAID, SELFPAY ==
[2025-02-09 10:00] VITALS: BP 100/59; BMI 19.3
--- OUTSIDE RECORDS SUMMARY | 2025-03-03 21:11 | XMS_ITS | Clinical Summary ---
Author Organization [facility] Address [address] [place] [address] Care Team Providers Care Outplacement Consultant Name Role Phone Nahomi Peres DO Primary Care Provider [phone]- [phone] Allergies No known active allergies Medications hydrOXYzine HCl (ATARAX) 25 mg tablet Take 25 mg by mouth 3 times daily as needed for Itching. Active DULoxetine (CYMBALTA) 60 mg Capsule, Delayed Release(E.C.) Take 60 mg by mouth daily. Active divalproex (DEPAKOTE) 500 mg delayed release tablet Take 500 mg by mouth daily. Active melatonin 5 mg Tablet Take 5 mg by mouth nightly as needed. Active fluticasone propionate (FLONASE) 50 mcg/spray [place], Suspension nasal inhaler Administer 2 Sprays in each nostril daily. Active raNITIdine (ZANTAC) 150 mg tablet Take 150 mg by mouth 2 times daily. Active cholecalciferol , vitamin D3, (VITAMIN D3) 5,000 unit Take 5,000 Units by mouth daily. Active cetirizine (ZyrTEC) 10 mg tablet Take 10 mg by mouth daily. Active cyclobenzaprine (FLEXERIL) 10 mg tablet Take 10 mg by mouth 1 time daily as needed for Spasm. Active albuterol HFA 90 mcg inhaler Take 2 Puffs by inhalation every 6 hours as needed for Shortness of Breath. Active cyanocobalamin (VITAMIN B-12) 1,000 mcg Tablet Take 2 Tablets (2,000 mcg) by mouth daily. 180 Tablet 1 9 Active Active Problems No known active problems Family History Medical History Relation Name Comments Aneurysm Father Migraines Father Seizures Son Relation Name Status Comments Father Son Alive Social History Tobacco Use Types Packs/Day Years Used Date Smoking Tobacco: Every Day Cigarettes Smokeless Tobacco: Never Tobacco Cessation:Counseling Given: Yes Comments No Sex and Gender Information Value Date Recorded Sex Assigned at Not on file Legal Sex Female 7:26 AM CDT Gender Identity Not on file Sexual Orientation Not on file Last Filed Vital Signs Vital Sign Reading Time Taken Comments Blood Pressure 99/68 05/17/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 Pulse 85 05/17/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 Temperature - - Respiratory Rate - - Oxygen Saturation - - Inhaled Oxygen Concentration - - Weight 54.4 kg (120 lb) 05/17/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 Height 170.2 cm (5' 7 ) 05/17/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 Body Mass Index 18.79 05/17/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 Plan of Treatment Health Maintenance Due Date Last Done Comments DTAP/TDAP/TD VACCINES (1 - Tdap) 2005 HEPATITIS B VACCINES (1 of 3 - 19+ 3-dose series) 12/04 HPV/Cotest (21-29) 12/27/2007 HPV VACCINES (1 - 3-dose SCDM series) 2013 CERVICAL CANCER SCREENING 2016 HPV/Cotest (30-65) 2016 PAP SMEAR 2016 INFLUENZA VACCINE (#1) 2024 Insurance [facility] PLAN [facility] PLAN OF [facility] Care Teams Outplacement Consultant Relationship Specialty Start Date End Date Nahomi Peres DO [address] [facility] [place] [address] PCP - General Family Practice 12/15/18
--- OUTSIDE RECORDS SUMMARY | 2025-03-03 21:11 | XMS_ITS | Clinical Summary ---
Author Organization [facility] Address [address] 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 180 Tablet 1 Active DULoxetine (CYMBALTA) 60 mg Capsule, Delayed Release(E.C.) Take 60 mg by mouth daily. Active fluticasone propionate (FLONASE) 50 mcg/spray [place], Suspension nasal inhaler Administer 2 Sprays in each nostril daily. Active raNITIdine (ZANTAC) 150 mg tablet Take 150 mg by mouth 2 times daily. Active cholecalciferol , vitamin D3, 5,000 unit Take 5,000 Units by mouth daily. Active cetirizine (ZyrTEC) 10 mg tablet Take 10 mg by mouth daily. Active cyclobenzaprine (FLEXERIL) 10 mg tablet Take 10 mg by mouth 1 time daily as needed for Spasm. Active divalproex (DEPAKOTE) 500 mg delayed release tablet Take 500 mg by mouth daily. Active albuterol sulfate 90 mcg/Actuation inhaler Take 2 Puffs by inhalation every 6 hours as needed for Shortness of Breath. Active melatonin 5 mg Tablet Take 5 mg by mouth nightly as needed. 9 Active hydrOXYzine HCL (ATARAX) 25 mg tablet Take 25 mg by mouth 3 times daily as needed for Itching. 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 RIBS Pulse 85 05/17/2019 12:07 PM SOLDERER BARREL RIBS Temperature - - Respiratory Rate - - Oxygen Saturation - - Inhaled Oxygen Concentration - - Weight 54.4 kg (120 lb) 05/17/2019 12:07 PM SOLDERER BARREL RIBS Height 170.2 cm (5' 7 ) 05/17/2019 12:07 PM SOLDERER BARREL RIBS Body Mass Index 18.79 05/17/2019 12:07 PM SOLDERER BARREL RIBS Plan of Treatment Health Maintenance Due Date Last Done Comments DTAP/TDAP/TD VACCINES (1 - Tdap) 2005 HEPATITIS B VACCINES (1 of 3 - 19+ 3-dose series) 12/04 HPV/Cotest (21-29) 12/27/2007 HPV VACCINES (1 - 3-dose SCDM series) 2013 CERVICAL CANCER SCREENING 2016 HPV/Cotest (30-65) 2016 PAP SMEAR 2016 INFLUENZA VACCINE (#1) 2024 Care Teams Incinerator Plant Laborer Relationship Specialty Start Date End Date Nahomi Peres DO [address] [place] [address] PCP - General Family Practice 12/15/18
[2025-03-03 21:16] VITALS: BP 124/86; PULSE 98; RESP 20; TEMP 37; O2SAT 100; BMI 17.6
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
[2025-03-04] MEDS: orphenadrine 30 mg/mL Inj 2 mL 60 MG IM (01:09)
== END 2025-03-04 02:44 | disposition home or self-care (01) ==
PROVIDERS: Emergency Provider Physician Assistant; PCP Nurse Practitioner
DX: M62.838 Other muscle spasm (principal); T74.11XA Adult physical abuse, confirmed, initial encounter; Y04.2XXA Assault by strike against or bumped into by another person, initial encounter; J44.9 Chronic obstructive pulmonary disease, unspecified; Z85.828 Personal history of other malignant neoplasm of skin; F17.210 Nicotine dependence, cigarettes, uncomplicated
CPT/HCPCS: 70450; 71250; 72125; 74176; 96372; 99284; J1885; J2360

== ENCOUNTER 2025-03-07 12:11 | Outpatient (CLI) | payer MEDICAID, SELFPAY ==
[2025-02-09 10:00] VITALS: BP 100/59; BMI 19.3
--- NOTE | 2025-03-07 12:16 | XR_ITS ---
WS: [id number] Left clavicle, 2 views, 03/07/2025 Clinical Data: injury to left clavical/shoulder Comparison: None. Findings: No fractures or dislocations are seen. The AC joint is normal. The soft tissues are unremarkable. The sternoclavicular joint is normal. XR/[place] [id number] Impression: Negative left clavicle.
== END 2025-03-07 12:12 | disposition home or self-care (01) ==
LOC: RAD 12:12
PROVIDERS: Internal Medicine; PCP Nurse Practitioner; Visit Provider Nurse Practitioner
DX: J44.9 Chronic obstructive pulmonary disease, unspecified (principal); Y09 Assault by unspecified means
CPT/HCPCS: 36415; 73000; 82103